=== PATIENT | female | born 1965 ===

== ENCOUNTER 2020-08-23 16:04 | Outpatient (REF) | payer BC, SELFPAY | END 2020-08-23 16:05 | disposition home or self-care (01) | LOC: HO.LNP 16:04 | PROVIDERS: Visit Provider Internal Medicine | DX: Z20.828 Contact with and (suspected) exposure to other viral communicable diseases (principal) | CPT/HCPCS: U0003 ==

== ENCOUNTER 2020-08-26 10:54 | Outpatient (REF) | payer BC, SELFPAY | END 2020-08-26 10:55 | disposition home or self-care (01) | LOC: HO.LAB 10:54 | PROVIDERS: Visit Provider Internal Medicine | DX: Z20.828 Contact with and (suspected) exposure to other viral communicable diseases (principal) | CPT/HCPCS: C9803; U0003 ==

== ENCOUNTER 2020-10-17 16:24 | Outpatient (REF) | payer BC, SELFPAY ==
[2020-10-17 18:19] LABS: Basophils Percent Auto 0.3 % (0-2); Eosinophils Absolute Auto 0.1 X10*3/uL (0.0-0.4); Eosinophils Percent Auto 1.5 % (0-4); Hematocrit 41.9 % (37-47); Hemoglobin 13.5 g/dl (12.0-16.0); Imm Gran Abs Auto 0.03 X10*3/uL (0.00-0.03); Imm Gran Pct Auto 0.4 % (0.0-0.4); Lymphocytes Absolute Auto 1.6 X10*3/uL (1.2-4.9); Lymphocytes Percent Auto 22.9 % (20-40); MANUAL DIFF FLAG NO; Mean Corpuscular HGB Conc 32.2 g/dl (31.0-35.0); Mean Corpuscular Hemoglobin 28.7 pg (27.0-33.0); Mean Corpuscular Volume 89.1 fL (80-98); Mean Platelet Volume 11.3 fL (9.4-12.3); Monocytes Absolute Auto 0.4 X10*3/uL (0.1-1.2); Monocytes Percent Auto 5.4 % (2-11); Neutrophils Absolute Auto 4.7 X10*3/uL (2.0-8.3); Neutrophils Percent Auto 69.5 % (45-73); Platelet Count 264 X10*3/uL (160-400); Red Cell Distribution Width 11.9 % (11.0-16.0); White Blood Count 6.8 X10*3/uL (4.8-10.8)
[2020-10-17 18:47] LABS: Alanine Aminotransferase 34 U/L (0-31); Albumin Level 4.5 g/dL (3.5-5.0); Alkaline Phosphatase 96 U/L (39-117); Anion Gap 13 (12-20); Aspartate Amino Transferase 21 U/L (5-31); Bilirubin Total 0.7 mg/dL (0.0-1.0); Blood Urea Nitrogen 19 mg/dL (9-16); Calcium 9.2 mg/dL (8.4-10.2); Carbon Dioxide 29 mmol/L (22-29); Chloride 106 mmol/L (96-108); Estimated Glomerular Filt Rate 51; Glucose Random 99 mg/dL (60-115); Potassium 4.7 mmol/l (3.3-5.1); Sodium 143 mmol/L (135-145); Total Protein 6.9 g/dL (6.5-8.0)
[2020-10-17 19:09] LABS: Free T4 (Free Thyroxine) 0.97 ng/dL (0.71-1.85); Thyroid Stimulating Hormone 1.94 uIU/mL (0.32-4.0)
[2020-10-18 08:01] LABS: Estimated Average Glucose 126 mg/dL; Hemoglobin A1C 148.7246 umol/L
== END 2020-10-17 16:25 | disposition home or self-care (01) ==
LOC: HO.LABR 16:24
PROVIDERS: PCP Internal Medicine; Visit Provider Internal Medicine
DX: I10 Essential (primary) hypertension (principal); R73.03 Prediabetes; R53.83 Other fatigue
CPT/HCPCS: 36415; 80053; 83036; 84439; 84443; 85025

== ENCOUNTER 2020-10-20 12:19 | Outpatient (REF) | payer BC, SELFPAY ==
--- NOTE | 2020-10-20 | MM_ITS ---
EXAMINATION: MM SCREENING DIGITAL BREAST TOMOSYNTHESIS, BILATERAL CLINICAL INFORMATION: Screening. Asymptomatic. The lifetime risk of breast cancer based on the Tyrer-Cuzick Model is 6.6%. COMPARISON: Mammography: January 20, 2017 and May 21, 2011 TECHNIQUE: Digital breast tomosynthesis is performed in both the craniocaudal and mediolateral oblique views along with computer-aided detection (CAD). Synthesized 2D images are generated from the tomosynthesis. FINDINGS: The breasts are heterogeneously dense, which may obscure small masses (ACR BI-RADS breast composition Category c). There are no significant masses, abnormal calcifications, or other abnormalities. MM/MM tomosynthesis screening BI IMPRESSION: There are no significant changes from prior study. ASSESSMENT: BI-RADS 1: Negative RECOMMENDATION: Routine annual mammography screening. This patient's information was entered into a reminder system with a target due date for their next mammogram.
--- NOTE | 2020-10-20 | MM_ITS ---
EXAMINATION: BONE DENSITOMETRY CLINICAL INDICATION: Asymptomatic menopausal state. COMPARISON: None (current study represents initial baseline exam). TECHNIQUE: Using a [employer] DXA System (software version: 13.1) manufactured by [employer], dual-energy x-ray absorptiometry was performed of the lumbar spine and left hip. The images are of good technical quality. Summary results are attached. FINDINGS: AP SPINE L1-L4: BMD 1.437 g/cm2, Z-score 3.0, T-score 2.1, normal. LEFT FEMUR, NECK: BMD 1.055 g/cm2, Z-score 1.2, T-score 0.1, normal. LEFT FEMUR, TOTAL: BMD 1.186 g/cm2, Z-score 2.1, T-score 1.4, normal. IDENTIFIED RISK FACTORS: Menopause. HISTORY OF FRACTURE: None listed. MEDICATIONS: Vitamin D. MM/XR DEXA axial skeleton IMPRESSION: 1. DIAGNOSIS: Normal bone density based on the lowest T-score value of 0.1 in the femoral neck applying World Health Organization criteria. 2. 10-YEAR FRACTURE RISK PREDICTION, FRAX: Major osteoporotic fracture (clinical spine, forearm, hip or shoulder) 4.9%. Hip fracture 0.1%. 3. Treatment Recommendations: NOF guidelines recommend consideration for treatment in postmenopausal women and men age 50 and older presenting with the following: -A hip or vertebral (clinical or morphometric) fracture. -T-score less than or equal to -2.5 at the femoral neck or spine after appropriate evaluation to exclude secondary causes. -Low bone mass at the hip or spine and a 10-year fracture probability by FRAX of greater than or equal to 3% for hip fracture or greater than or equal to 20% for major osteoporotic fracture based on the [place] adapted WHO algorithm. 4. Other Recommendations: All treatment decisions require clinical judgment and consideration of individual patient factors, including patient preferences, comorbidities, previous drug use, risk factors not captured in the FRAX model (e.g. frailty, falls, vitamin D deficiency, increased bone turnover, interval significant decline in bone density) and possible under or overestimation of fracture risk by FRAX. FUTURE SCAN RECOMMENDATION: People with diagnosed cases of osteoporosis or at high risk for fracture should have regular bone mineral density tests. For patients eligible for Medicare, routine testing is allowed once every 2 years. The testing frequency can be increased to one year for patients who have rapidly progressing disease, those who are receiving or discontinuing medical therapy to restore bone mass, or have additional risk factors.
== END 2020-10-20 12:20 | disposition home or self-care (01) ==
LOC: HO.MAMMO 12:19
PROVIDERS: PCP Internal Medicine; Visit Provider Internal Medicine
DX: Z12.31 Encounter for screening mammogram for malignant neoplasm of breast (principal); Z78.0 Asymptomatic menopausal state; Z13.820 Encounter for screening for osteoporosis
CPT/HCPCS: 77063; 77067; 77080

== ENCOUNTER 2020-11-30 15:07 | Outpatient (REF) | payer BC, SELFPAY ==
[2020-11-30 15:44] LABS: Estimated Average Glucose 126 mg/dL
[2020-11-30 16:03] LABS: Alanine Aminotransferase 33 U/L (0-31); Albumin Level 4.9 g/dL (3.5-5.0); Alkaline Phosphatase 96 U/L (39-117); Anion Gap 15 (12-20); Aspartate Amino Transferase 28 U/L (5-31); Bilirubin Total 1.4 mg/dL (0.0-1.0); Blood Urea Nitrogen 17 mg/dL (9-16); Calcium 9.9 mg/dL (8.4-10.2); Carbon Dioxide 26 mmol/L (22-29); Chloride 103 mmol/L (96-108); Estimated Glomerular Filt Rate > 60; Glucose Random 114 mg/dL (60-115); Sodium 139 mmol/L (135-145); Total Protein 7.4 g/dL (6.5-8.0)
== END 2020-11-30 15:08 | disposition home or self-care (01) ==
LOC: HO.LAB 15:07
PROVIDERS: PCP Internal Medicine; Visit Provider Internal Medicine
DX: I12.9 Hypertensive chronic kidney disease with stage 1 through stage 4 chronic kidney disease, or unspecified chronic kidney disease (principal); N18.9 Chronic kidney disease, unspecified; R73.03 Prediabetes
CPT/HCPCS: 36415; 80053; 83036

== ENCOUNTER 2021-01-11 11:48 | Outpatient (REF) | payer BC, SELFPAY ==
[2021-01-11 13:25] LABS: MANUAL DIFF FLAG NO
[2021-01-11 13:29] LABS: Basophils Percent Auto 0.3 % (0-2); Eosinophils Absolute Auto 1.3 X10*3/uL (0.0-0.4); Eosinophils Percent Auto 17.6 % (0-4); Hematocrit 45.6 % (37-47); Hemoglobin 14.7 g/dl (12.0-16.0); Imm Gran Abs Auto 0.04 X10*3/uL (0.00-0.03); Imm Gran Pct Auto 0.5 % (0.0-0.4); Lymphocytes Absolute Auto 1.6 X10*3/uL (1.2-4.9); Lymphocytes Percent Auto 21.7 % (20-40); Mean Corpuscular HGB Conc 32.2 g/dl (31.0-35.0); Mean Corpuscular Hemoglobin 28.3 pg (27.0-33.0); Mean Corpuscular Volume 87.9 fL (80-98); Mean Platelet Volume 11.3 fL (9.4-12.3); Monocytes Absolute Auto 0.4 X10*3/uL (0.1-1.2); Neutrophils Percent Auto 53.9 % (45-73); Platelet Count 262 X10*3/uL (160-400); Red Blood Count 5.19 X10*6/uL (4.20-5.50); Red Cell Distribution Width 12.5 % (11.0-16.0); White Blood Count 7.4 X10*3/uL (4.8-10.8)
[2021-01-11 13:48] LABS: Glucose Urine UA NEG (NEG); Leukocyte Esterase Urine NEG (NEG); Nitrite Urine NEG (NEG); PH 5.5 (5.0-8.0); Urine Blood NEG (NEG); Urine Ketones 5 MG/DL (NEG); Urine Protein NEG (NEG-TRACE)
[2021-01-11 13:50] LABS: Appearance Urine CLEAR; Color Urine YELLOW
[2021-01-11 14:01] LABS: Alanine Aminotransferase 20 U/L (0-31); Albumin Level 4.3 g/dL (3.5-5.0); Alkaline Phosphatase 96 U/L (39-117); Anion Gap 14 (12-20); Aspartate Amino Transferase 17 U/L (5-31); Bilirubin Total 1.1 mg/dL (0.0-1.0); Blood Urea Nitrogen 15 mg/dL (9-16); C Reactive Protein 0.25 mg/dL (< or = 0.50); Calcium 9.4 mg/dL (8.4-10.2); Carbon Dioxide 26 mmol/L (22-29); Chloride 103 mmol/L (96-108); Estimated Glomerular Filt Rate > 60; Glucose Random 98 mg/dL (60-115); Lipase 48 U/L (8-78); Potassium 4.9 mmol/L (3.3-5.1); Sodium 138 mmol/L (135-145); Total Protein 6.7 g/dL (6.5-8.0)
== END 2021-01-11 11:49 | disposition home or self-care (01) ==
LOC: HO.10HDL 11:48
PROVIDERS: PCP Internal Medicine; Visit Provider Internal Medicine
DX: R10.9 Unspecified abdominal pain (principal); R30.0 Dysuria
CPT/HCPCS: 36415; 80053; 81003; 83690; 85025; 86140; 87086

== ENCOUNTER 2021-01-15 11:52 | Outpatient (REF) | payer BC, SELFPAY ==
[2021-01-15 13:16] LABS: MANUAL DIFF FLAG NO
[2021-01-15 13:19] LABS: Basophils Percent Auto 0.5 % (0-2); Eosinophils Absolute Auto 1.4 X10*3/uL (0.0-0.4); Eosinophils Percent Auto 22.1 % (0-4); Hematocrit 42.8 % (37-47); Hemoglobin 13.9 g/dl (12.0-16.0); Imm Gran Abs Auto 0.03 X10*3/uL (0.00-0.03); Imm Gran Pct Auto 0.5 % (0.0-0.4); Lymphocytes Absolute Auto 1.8 X10*3/uL (1.2-4.9); Lymphocytes Percent Auto 28.1 % (20-40); Mean Corpuscular HGB Conc 32.5 g/dl (31.0-35.0); Mean Corpuscular Hemoglobin 28.5 pg (27.0-33.0); Mean Corpuscular Volume 87.9 fL (80-98); Mean Platelet Volume 11.2 fL (9.4-12.3); Monocytes Absolute Auto 0.4 X10*3/uL (0.1-1.2); Neutrophils Absolute Auto 2.8 X10*3/uL (2.0-8.3); Neutrophils Percent Auto 42.8 % (45-73); Platelet Count 238 X10*3/uL (160-400); Red Blood Count 4.87 X10*6/uL (4.20-5.50); Red Cell Distribution Width 12.7 % (11.0-16.0); White Blood Count 6.5 X10*3/uL (4.8-10.8)
[2021-01-15 13:47] LABS: Alanine Aminotransferase 25 U/L (0-31); Alkaline Phosphatase 86 U/L (39-117); Anion Gap 13 (12-20); Aspartate Amino Transferase 19 U/L (5-31); Bilirubin Total 1.3 mg/dL (0.0-1.0); Blood Urea Nitrogen 15 mg/dL (9-16); C Reactive Protein 0.36 mg/dL (< or = 0.50); Calcium 9.1 mg/dL (8.4-10.2); Carbon Dioxide 25 mmol/L (22-29); Chloride 103 mmol/L (96-108); Estimated Glomerular Filt Rate > 60; Glucose Random 117 mg/dL (60-115); Potassium 4.8 mmol/L (3.3-5.1); Sodium 136 mmol/L (135-145); Total Protein 6.1 g/dL (6.5-8.0)
== END 2021-01-15 11:53 | disposition home or self-care (01) ==
LOC: HO.10HDL 11:52
PROVIDERS: Visit Provider Internal Medicine
DX: I10 Essential (primary) hypertension (principal); M54.2 Cervicalgia
CPT/HCPCS: 36415; 80053; 82550; 85025; 86140

== ENCOUNTER 2021-08-08 12:00 | Outpatient (REF) | payer BC, SELFPAY ==
[2021-08-08 13:14] LABS: Vitamin D 25-OH Total 130.7 ng/mL (>30)
== END 2021-08-08 12:01 | disposition home or self-care (01) ==
LOC: HO.LAB 12:00
PROVIDERS: PCP Internal Medicine; Visit Provider Internal Medicine
DX: E55.9 Vitamin D deficiency, unspecified (principal)
CPT/HCPCS: 36415; 82306

== ENCOUNTER 2021-09-19 08:58 | Outpatient (REF) | payer BC, SELFPAY | END 2021-09-19 08:59 | disposition home or self-care (01) | LOC: HO.HMGCLDS 08:58 | PROVIDERS: Visit Provider Internal Medicine | DX: Z20.822 Contact with and (suspected) exposure to COVID-19 (principal) | CPT/HCPCS: C9803; U0003; U0005 ==

== ENCOUNTER 2022-08-27 08:55 | Outpatient (REF) | payer BC, SELFPAY ==
[2022-08-27 11:29] LABS: MANUAL DIFF FLAG NO
[2022-08-27 11:33] LABS: Appearance Urine Clear; Color Urine Yellow; Glucose Urine UA Negative (Negative); Leukocyte Esterase Urine Negative (Negative); Nitrite Urine Negative (Negative); PH 7.5 (5.0-9.0); Urine Blood Negative (Negative); Urine Ketones Negative (Negative); Urine Protein Negative (Neg-Trace)
[2022-08-27 11:40] LABS: Eosinophils Absolute Auto 0.2 X10*3/uL (0.0-0.4); Eosinophils Percent Auto 3.7 % (0-4); Hematocrit 43.2 % (37.0-47.0); Hemoglobin 14.1 g/dl (12.0-16.0); Imm Gran Abs Auto 0.01 X10*3/uL (0.00-0.03); Imm Gran Pct Auto 0.2 % (0.0-0.4); Lymphocytes Absolute Auto 1.4 X10*3/uL (1.2-4.9); Lymphocytes Percent Auto 33.3 % (20-40); Mean Corpuscular HGB Conc 32.6 g/dl (31.0-35.0); Mean Corpuscular Hemoglobin 28.8 pg (27.0-33.0); Mean Corpuscular Volume 88.2 fL (80.0-98.0); Mean Platelet Volume 11.3 fL (9.4-12.3); Monocytes Absolute Auto 0.3 X10*3/uL (0.1-1.2); Monocytes Percent Auto 7.9 % (2-11); Neutrophils Absolute Auto 2.2 x10*3/uL (2.0-8.3); Neutrophils Percent Auto 53.9 % (45-73); Platelet Count 240 X10*3/uL (160-400); Red Cell Distribution Width 12.4 % (11.0-16.0); White Blood Count 4.1 X10*3/uL (4.8-10.8)
[2022-08-27 13:52] LABS: Alanine Aminotransferase 25 U/L (0-31); Albumin Level 4.5 g/dL (3.5-5.0); Alkaline Phosphatase 89 U/L (39-117); Anion Gap 11 (12-20); Aspartate Amino Transferase 17 U/L (5-31); Bilirubin Total 1.1 mg/dL (0.0-1.0); Blood Urea Nitrogen 17 mg/dL (9-16); Calcium 9.4 mg/dL (8.4-10.2); Carbon Dioxide 29 mmol/L (22-29); Chloride 106 mmol/L (96-108); Cholesterol 232 mg/dL; Estimated Glomerular Filt Rate > 60; Glucose Fasting 140 mg/dL (60-99); HDL Cholesterol 58 mg/dL; LDL Cholesterol Calculated 153 mg/dl; Sodium 141 mmol/L (135-145); TSH reflex Free T4 1.99 uIU/mL (0.32-4.0); Total Protein 6.9 g/dL (6.5-8.0); Triglycerides 107 mg/dL; Vitamin D 25-OH Total 32.9 ng/mL (>30)
== END 2022-08-27 08:56 | disposition home or self-care (01) ==
LOC: HO.HMGCLDS 08:55
PROVIDERS: PCP Nurse Practitioner Family; Visit Provider Nurse Practitioner Family
DX: Z00.00 Encounter for general adult medical examination without abnormal findings (principal); Z78.0 Asymptomatic menopausal state
CPT/HCPCS: 36415; 80053; 80061; 81003; 82306; 84443; 85025

== ENCOUNTER 2022-09-06 14:46 | Outpatient (REF) | payer BC, SELFPAY ==
--- NOTE | ~2022-09-06 | MM_ITS ---
EXAMINATION: MM SCREENING DIGITAL BREAST TOMOSYNTHESIS, BILATERAL CLINICAL INFORMATION: Screening. Asymptomatic. The lifetime risk of breast cancer based on the Tyrer-Cuzick Model is 6%. COMPARISON: Mammography: 10/20/2020, 02/08/2017 TECHNIQUE: Digital breast tomosynthesis is performed in both the craniocaudal and mediolateral oblique views along with computer-aided detection (CAD). Synthesized 2D images are generated from the tomosynthesis. FINDINGS: The breasts are heterogeneously dense, which may obscure small masses (ACR BI-RADS breast composition Category c). Breast tissue composition borders on average fibroglandular. Parenchymal pattern is similar to prior studies. There are no significant masses, abnormal calcifications, or other abnormalities. No significant changes. MM/MM tomosynthesis screening BI IMPRESSION: No mammographic evidence of malignancy. ASSESSMENT: BI-RADS 1: Negative RECOMMENDATION: Routine annual mammography screening. This patient's information was entered into a reminder system with a target due date for their next mammogram.
== END 2022-09-06 14:47 | disposition home or self-care (01) ==
LOC: HO.MAMMO 14:46
PROVIDERS: PCP Nurse Practitioner Family; Visit Provider Nurse Practitioner Family
DX: Z12.31 Encounter for screening mammogram for malignant neoplasm of breast (principal)
CPT/HCPCS: 77063; 77067

== ENCOUNTER 2022-11-27 07:22 | Outpatient (REF) | payer BC, SELFPAY ==
[2022-11-27 11:47] LABS: Alanine Aminotransferase 29 U/L (0-31); Albumin Level 4.4 g/dL (3.5-5.0); Alkaline Phosphatase 82 U/L (39-117); Anion Gap 12 (12-20); Aspartate Amino Transferase 20 U/L (5-31); Bilirubin Total 1.2 mg/dL (0.0-1.0); Blood Urea Nitrogen 20 mg/dL (9-16); Calcium 9.1 mg/dL (8.4-10.2); Carbon Dioxide 25 mmol/L (22-29); Chloride 108 mmol/L (96-108); Cholesterol 232 mg/dL; Estimated Glomerular Filt Rate > 60; Glucose Fasting 143 mg/dL (60-99); HDL Cholesterol 54 mg/dL; LDL Cholesterol Calculated 146 mg/dl; Potassium 4.4 mmol/L (3.3-5.1); Sodium 141 mmol/L (135-145); Total Protein 6.5 g/dL (6.5-8.0); Triglycerides 161 mg/dL
== END 2022-11-27 07:23 | disposition home or self-care (01) ==
LOC: HO.HMGCLDS 07:22
PROVIDERS: PCP Nurse Practitioner Family; Visit Provider Nurse Practitioner Family
DX: E78.5 Hyperlipidemia, unspecified (principal)
CPT/HCPCS: 36415; 80053; 80061

== ENCOUNTER 2023-02-06 13:36 | Outpatient (REF) | payer BC, SELFPAY ==
[2023-02-13 09:23] LABS: HPV mRNA E6/E7 rflx Not Detected (Not Detected)
== END 2023-02-06 13:37 | disposition home or self-care (01) ==
LOC: HO.LNP 13:36
PROVIDERS: PCP Nurse Practitioner Family; Visit Provider Advanced Practice Midwife
DX: Z01.419 Encounter for gynecological examination (general) (routine) without abnormal findings (principal); N89.8 Other specified noninflammatory disorders of vagina; R32 Unspecified urinary incontinence; N95.1 Menopausal and female climacteric states
CPT/HCPCS: 87624; 88142

== ENCOUNTER → 2023-03-06 15:14 | Outpatient (BNVA) | payer BC, SELFPAY | PROVIDERS: PCP Nurse Practitioner Family; Visit Provider Nurse Practitioner Family | DX: N39.3 Stress incontinence (female) (male) (principal); R35.0 Frequency of micturition; E78.5 Hyperlipidemia, unspecified; Z79.899 Other long term (current) drug therapy | CPT/HCPCS: 51798 ==

== ENCOUNTER 2023-08-19 07:36 | Outpatient (AMB) | payer BC, SELFPAY ==
--- NOTE | 2023-08-19 07:41 | MHC.PC.OV ---
Vital Signs 08/19/23 07:43 Height 5 ft Weight 152 lb BMI 29.7 BP 112/76 Blood Pressure Location Rt brachial Position Sitting Pulse 71 Pulse Source Pulse Oximeter Pulse Oximetry (%) 98 Oxygen Delivery Method Room Air Intake Visit Reasons: Annual PE Intake Note: Patient here for physical exam, pt would like to talk about medications. Allergies No Known Allergies Allergy (Verified 08/19/23 07:46) Medication List - Last Reconciled 08/19/23 by BHASKAR Benites atorvastatin 10 mg PO BEDTIME blood sugar diagnostic ([employer] Ultra Test strips) Use to check blood sugar twice daily: fasting and random, and for s/s hypo/hyperglycemia blood-glucose meter ([employer] Ultra2 Meter) Use to check blood sugar twice daily: fasting and random, and for s/s hypo/hyperglycemia carvedilol 3.125 mg PO ONCE lancets ([employer] Delica Lancets) Use to check blood sugar twice daily: fasting and random, and for s/s hypo/hyperglycemia lisinopril 10 mg PO DAILY Tobacco use date assessed: 08/19/23 Dental Screening Dental Screen Date: 08/19/23 Did you have a dental visit in the last 12 months?: Yes Did you have a dental problem in the last 6 months where you did not have access to dental care?: No Was dental information given to patient?: Patient has dentist HPI Annual PE HPI Details Pt is here for a PE. Will order labs. 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 Due for mammo in the near future, will order. Pt had a previous colonoscopy at [place], missing notes, will try to track these down. Pt is a diabetic, on an SOMMER and a statin. Due for A1C and microalbumin, will order. Denies polyuria, polydipsia, and neuropathy. Pt denies any signs and symptoms of hypoglycemia and does know how to correct it. Pt does not check her blood sugar often because she has trouble pricking her finger (needle phobia). Will send sensor. refuses pneumo vaccines/flu vaccine. [facility] Medical History (Updated 08/19/23 @ 07:54 by BHASKAR Benites) Menopausal vaginal dryness Leaking of urine Frequency of urination High cholesterol Diabetes Surgical History Hx of section Family History Sister Diabetes 1.5, managed as type 1 Mother Hypertension Housing: House Alcohol intake: current Alcohol intake frequency: a few times a week Patient Tobacco Use Status: Never used Tobacco e-Cigarette/Vaping Use: Never Used Current occupational status: unemployed Sexual orientation: Straight/Heterosexual Gender identity: Female Cognitive needs: No Hearing needs: No Vision needs: No Questionnaire PHQ-9 Over the last 2 weeks, how often have you been bothered by any of the following problems? 99267 - PHQ-9 Billing: Patient declined-do not bill Source: Developed by Drs. Anil Carlson, Sylvia Batres, Maximiliano Aden and colleagues, with an educational ar from [employer]. Thrive Questionnaire Date Thrive assessed: 08/19/23 I am a: Patient What is your living situation today?: I have a steady place to live Within the past 12 months, did the food you bought not last and you didn't have the money to get more?: Never true Within the past 12 months, did you worry whether your food would run out before you got money to buy more?: Never true Do you have trouble paying for medicines?: No Do you have trouble getting transportation to medical appointments?: No Do you have trouble paying your heating and electricity bill?: No Do you have trouble taking care of your child, family member or friend?: No Do you have trouble with day-to-day activities such as bathing, preparing meals, shopping, managing finances, etc.?: No Are you currently unemployed and looking for a job?: No Are you interested in more education?: No JENNIFER-7 AMB Questionnaire JENNIFER-7 Date JENNIFER - 7 assessed: 08/19/23 Feeling nervous, anxious, or on edge: 1 = Several days Not being able to stop or control worryin = Several days Worrying too much about different things: 2 = More than half the days Trouble relaxin = Several days Being so restless that it is hard to sit still: 0 = Not at all Becoming easily annoyed or irritable: 2 = More than half the days Feeling afraid as if something awful might happen: 1 = Several days Total JENNIFER-7 score (0-4 normal; 5-9 mild; 10-14 moderate; 15-21 severe): 8 Source: Developed by Drs. Anil Carlson, Sylvia Batres, Maximiliano Aden and colleagues, with an educational ar from [employer]. JENNIFER-7 Assessment Billing JENNIFER-7 Assessment Tool: JENNIFER-7 Assessment 85245 Review of Systems Const Denies chills and Denies fever(s) Eyes Denies blurry vision ENT Denies vertigo, Denies dizziness and Denies sore throat Card Denies chest pain at rest, Denies chest pain with activity, Denies diaphoresis, Denies dyspnea and Denies dyspnea on exertion Resp Denies cough, Denies dyspnea, Denies dyspnea on exertion and Denies wheezing GI Denies abdominal pain, Denies melena, Denies hematochezia, Denies constipation, Denies diarrhea and Denies loose stools Denies hematuria Musc Denies numbness and Denies tingling Skin/Breast Denies lesions Neuro Denies vertigo, Denies dizziness, Denies numbness and Denies tingling Psych Denies anxiety, Denies depression, Denies homicidal ideation, Denies suicidal ideation and Denies other (substance abuse) Aller/Immun Denies wheezing Physical exam (Primary Care) Vital Signs: Last Vital Signs Pulse 71 08/19/23 07:43 BP 112/76 08/19/23 07:43 Pulse Ox 98 08/19/23 07:43 Oxygen Delivery Method Room Air 08/19/23 07:43 BMI result Body Mass Index 29.7 Tobacco/Smoking Status: Tobacco use Status Tobacco use date assessed 08/19/23 08/19/23 07:52 Patient Tobacco Use Status Never used Tobacco 08/19/23 07:42 e-Cigarette/Vaping Use Never Used 08/19/23 07:42 Thrive Assessment: Date of Thrive Assessment Date Thrive assessed 08/19/23 08/19/23 08:43 Const General: cooperative Nutritional Appearance: well nourished Orientation/consciousness: patient oriented x3 HENMT Head: Yes normal to inspection, Yes normocephalic and Yes atraumatic Ears: TM's normal bilaterally Eyes General: appearance normal, both eyes and all related structures Alignment and Position: alignment normal and position normal Neck Neck: Yes normal visual inspection and Yes no lymphadenopathy Thyroid: Thyroid normal Resp Effort & Inspection: normal respiratory effort Auscultation: clear to auscultation bilaterally Cardio Rate: regular rate Rhythm: regular rhythm Heart sounds: S1 normal heart sound present, S2 normal heart sound present and no murmurs GI Palpation (GI): Soft to palpation and nontender Auscultation: normal bowel sounds Skin Rashes: no rashes Neuro General: patient oriented x3, moves all extremities, no focal motor deficits and deep tendon reflexes 2+ bilaterally Romberg Test: Negative Extrem Other: bilat feet: + sensation with use of monofilament, feet intact Psych Appearance: grossly normal Mental Status: mental status grossly normal Speech and movement: Normal speech and movement present Affect: normal affect Attitude: cooperative Thought process: Normal thought process present Thought content: Normal thought content present Insight: Good insight present (Psych) Judgement: Good judgement present (Psych) Assessment and Plan Assessment & Plan (1) Diabetes: Code(s): E11.9 - Type 2 diabetes mellitus without complications Plan: Labs ordered (2) Physical exam: Code(s): Z00.00 - Encounter for general adult medical examination without abnormal findings Plan: Labs ordered Plan The patient agreed to the use of a medical secretary teacher for this encounter. Scribed for BHASKAR Griffin by Lalitha Salinas medical secretary teacher, on 08/19/2023 at 08:00 EST. Orders: Orders Complete Blood Count Auto Diff Today E11.9 - Type 2 diabetes mellitus without complications UA CC w/rflx Micro + Cult Today E11.9 - Type 2 diabetes mellitus without complications Microalbumin, Random (w Creat) Today E11.9 - Type 2 diabetes mellitus without complications Hemoglobin A1c Today E11.9 - Type 2 diabetes mellitus without complications MM screening mammo BI Today Z12.31 - Encounter for screening mammogram for malignant neoplasm of breast Comprehensive Paia. Panel Fast Today E11.9 - Type 2 diabetes mellitus without complications TSH reflex Free T4 Today E11.9 - Type 2 diabetes mellitus without complications Lipid Panel Today E11.9 - Type 2 diabetes mellitus without complications AMB EKG-In Office Today Z00.00 - Encounter for general adult medical examination without abnormal findings Medications: Changed From carvedilol 3.125 mg PO BID 180 tabs 1RF To carvedilol 3.125 mg PO ONCE Refilled atorvastatin 10 mg PO BEDTIME 90 tabs 3RF Coding Level of Care Code Est Pt Prev Care 40-64y(79606) Diagnoses Diabetes E11.9 Physical exam Z00.00 Additional Codes JENNIFER-7 Assessment Billing - JENNIFER-7 Assessment Tool: JENNIFER-7 Assessment 87275 ([id number])
[2023-08-19 07:43] VITALS: BP 112/76; PULSE 71; O2SAT 98; BMI 29.7
== END 2023-08-19 08:44 | disposition home or self-care (01) ==
PROVIDERS: Visit Provider Nurse Practitioner Family
DX: E11.9 Type 2 diabetes mellitus without complications (principal); Z00.00 Encounter for general adult medical examination without abnormal findings
CPT/HCPCS: 99396

== ENCOUNTER 2023-08-23 09:14 | Outpatient (REF) | payer BC, SELFPAY ==
[2023-08-23 11:11] LABS: MANUAL DIFF FLAG NO
[2023-08-23 11:17] LABS: Basophils Percent Auto 0.7 % (0-2); Eosinophils Absolute Auto 0.2 X10*3/uL (0.0-0.4); Eosinophils Percent Auto 3.4 % (0-4); Hematocrit 43.7 % (37.0-47.0); Hemoglobin 13.9 g/dl (12.0-16.0); Imm Gran Abs Auto 0.03 X10*3/uL (0.00-0.03); Imm Gran Pct Auto 0.7 % (0.0-0.4); Lymphocytes Absolute Auto 1.6 X10*3/uL (1.2-4.9); Lymphocytes Percent Auto 35.4 % (20-40); Mean Corpuscular HGB Conc 31.8 g/dl (31.0-35.0); Mean Corpuscular Hemoglobin 28.1 pg (27.0-33.0); Mean Corpuscular Volume 88.5 fL (80.0-98.0); Mean Platelet Volume 11.6 fL (9.4-12.3); Monocytes Absolute Auto 0.4 X10*3/uL (0.1-1.2); Monocytes Percent Auto 7.8 % (2-11); Neutrophils Absolute Auto 2.3 x10*3/uL (2.0-8.3); Platelet Count 243 X10*3/uL (160-400); Red Blood Count 4.94 X10*6/uL (4.20-5.50); Red Cell Distribution Width 12.7 % (11.0-16.0); White Blood Count 4.5 X10*3/uL (4.8-10.8)
[2023-08-23 11:20] LABS: Appearance Urine Clear; Color Urine Yellow; Glucose Urine UA Negative (Negative); Leukocyte Esterase Urine Negative (Negative); Nitrite Urine Negative (Negative); Specific Gravity - Urine <= 1.005 (1.005-1.025); Urine Blood Negative (Negative); Urine Ketones Negative (Negative); Urine Protein Negative (Neg-Trace)
[2023-08-23 11:29] LABS: Estimated Average Glucose 140 mg/dL; Hemoglobin A1c % 6.5 % (<6.0)
[2023-08-23 11:40] LABS: Alanine Aminotransferase 44 U/L (0-31); Albumin Level 4.3 g/dL (3.5-5.0); Alkaline Phosphatase 80 U/L (39-117); Anion Gap 13 (12-20); Aspartate Amino Transferase 24 U/L (5-31); Bilirubin Total 0.7 mg/dL (0.0-1.0); Blood Urea Nitrogen 17 mg/dL (9-16); Calcium 9.4 mg/dL (8.4-10.2); Carbon Dioxide 25 mmol/L (22-29); Chloride 107 mmol/L (96-108); Cholesterol 192 mg/dL (<200); Estimated Glomerular Filt Rate > 60; Glucose Fasting 156 mg/dL (60-99); HDL Cholesterol 51 mg/dL (>40); LDL Cholesterol Calculated 119 mg/dL (<100); Sodium 140 mmol/L (135-145); Triglycerides 112 mg/dL (<150)
[2023-08-23 11:46] LABS: Creatinine Urine 47.18 mg/dL; Microalbum/Creatinine Ratio Ur 61.4 ug/mg cr (<30)
[2023-08-23 11:56] LABS: TSH reflex Free T4 2.28 uIU/mL (0.32-4.0)
== END 2023-08-23 09:15 | disposition home or self-care (01) ==
LOC: HO.HMGCLDS 09:14
PROVIDERS: PCP Nurse Practitioner Family; Visit Provider Nurse Practitioner Family
DX: E11.9 Type 2 diabetes mellitus without complications (principal)
CPT/HCPCS: 36415; 80053; 80061; 81003; 82043; 82570; 83036; 84443; 85025

== ENCOUNTER 2023-09-09 08:19 | Outpatient (REF) | payer BC, SELFPAY ==
--- NOTE | ~2023-09-09 | US_ITS ---
EXAMINATION: US ABDOMEN COMPLETE CLINICAL INFORMATION: Abnormal levels of other serum enzymes. COMPARISON: None available. TECHNIQUE: Real-time imaging of the abdominal viscera. Limited visualization due to bowel gas. FINDINGS: PANCREAS: Limited visualization. ABDOMINAL AORTA: Nonaneurysmal. INFERIOR VENA CAVA: Visualized portions are normal. LIVER: Increased hepatic parenchymal heterogeneity and echogenicity which could be associated with hepatocellular disease/hepatic steatosis and severely limits visualization. GALLBLADDER: Gallbladder wall thickness of 0.27 cm. No gallstones appreciated. COMMON BILE DUCT: Caliber measuring 0.63 cm in diameter. RIGHT KIDNEY: No hydronephrosis. No renal calculi. Limited visualization. The kidney measures 12.8 cm in maximum dimension. LEFT KIDNEY: Left kidney not visualized, although visualization is limited due to bowel gas. Radiologist not in attendance. Images later provided for interpretation. Per correctional case manager statement, patient denies history of prior nephrectomy. SPLEEN: Normal. The spleen measures 10.5 cm in maximum dimension. FREE FLUID: None. US/US abdomen complete IMPRESSION: 1. Increased hepatic parenchymal heterogeneity and echogenicity which could be associated with hepatocellular disease/hepatic steatosis and severely limits visualization. 2. Left kidney not visualized, although visualization is limited due to bowel gas. Radiologist not in attendance. Per correctional case manager statement, patient denies history of prior nephrectomy. Differential considerations include renal agenesis, atypical/atrophic kidney and/or ectopic kidney. CT scan of the abdomen and pelvis recommended for further evaluation.
== END 2023-09-09 08:20 | disposition home or self-care (01) ==
LOC: HO.HMGCX 08:19
PROVIDERS: PCP Nurse Practitioner Family; Visit Provider Nurse Practitioner Family
DX: R74.8 Abnormal levels of other serum enzymes (principal)
CPT/HCPCS: 76700

== ENCOUNTER 2023-10-28 16:27 | Outpatient (REF) | payer BC, SELFPAY ==
--- NOTE | ~2023-10-28 | CT_ITS ---
EXAMINATION: CT ABDOMEN AND PELVIS WITHOUT CONTRAST CLINICAL INFORMATION: Question left renal atrophy. COMPARISON: Abdominal ultrasound 09/09/2023 TECHNIQUE: Multidetector volumetric imaging was performed from the superior aspect of the liver through the pubic symphysis. Sagittal and coronal reformatted images were obtained on the technologist's workstation. This CT examination was performed using dose optimization techniques as appropriate, variously including the following: *Automated exposure control *Adjustment of mA and/or kV according to patient size (this includes techniques or standardized protocols for targeted exams where dose is matched to indication/reason for exam; i.e. extremities or head) *Use of iterative reconstruction technique DLP: 583 mGy-cm FINDINGS: Visualized lung bases are well aerated. The liver is normal in size but demonstrates diffusely decreased attenuation. Small calcified granuloma noted within the anterior right hepatic lobe. The gallbladder is normal in appearance. The pancreas, spleen and adrenal glands are unremarkable. The right kidney measures 12 cm in maximum dimension. No renal calculi or hydronephrosis of the right kidney. A left kidney is not identified. The stomach is decompressed. Normal caliber loops of small and large bowel. Mild colonic stool burden. Mild to moderate colonic diverticulosis without CT evidence to suggest active diverticulitis. Normal appendix. Normal caliber abdominal aorta demonstrating mild atherosclerotic disease. 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 No retroperitoneal lymphadenopathy. The bladder is normal in appearance. Unremarkable CT appearance of the uterus. No gross free pelvic fluid. No inguinal lymphadenopathy. Mild diffuse degenerative changes of the spine. CT/CT abdomen pelvis wo IV con IMPRESSION: 1. A left kidney is not identified. 2. The right kidney measures 12 cm in maximum dimension. No renal calculi or hydronephrosis of the right kidney. 3. Diffusely decreased liver attenuation suggesting hepatic steatosis. Correlation with liver enzymes recommended. 4. Mild to moderate colonic diverticulosis without CT evidence to suggest active diverticulitis. 5. 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 Fleischner guidelines were followed.
== END 2023-10-28 16:28 | disposition home or self-care (01) ==
LOC: HO.CT 16:27
PROVIDERS: PCP Nurse Practitioner Family; Visit Provider Nurse Practitioner Family
DX: R93.422 Abnormal radiologic findings on diagnostic imaging of left kidney (principal)
CPT/HCPCS: 74176

== ENCOUNTER 2023-11-24 07:24 | Outpatient (REF) | payer BC, SELFPAY | END 2023-11-24 07:25 | disposition home or self-care (01) | LOC: HO.MAMMO 07:24 | PROVIDERS: PCP Nurse Practitioner Family; Visit Provider Nurse Practitioner Family | DX: Z12.31 Encounter for screening mammogram for malignant neoplasm of breast (principal) | CPT/HCPCS: 77063; 77067 ==

== ENCOUNTER → 2023-11-24 07:30 | Outpatient (BNV) | payer BC, SELFPAY | PROVIDERS: PCP Nurse Practitioner Family; Visit Provider Radiology Diagnostic Radiology | DX: Z12.31 Encounter for screening mammogram for malignant neoplasm of breast (principal) | CPT/HCPCS: 77063; 77067 ==

== ENCOUNTER 2024-01-15 08:11 | Outpatient (AMB) | payer BC, SELFPAY ==
[2024-01-15 08:49] VITALS: BP 112/72; PULSE 63; TEMP 36.4; O2SAT 98; BMI 29.5
--- NOTE | 2024-01-15 08:49 | AM.OFFWIN_ITS ---
Intake Vital Signs 01/15/24 08:49 Height 5 ft Weight 151 lb BMI 29.5 BP 112/72 Blood Pressure Location Lt brachial Position Sitting Pulse 63 Pulse Source Pulse Oximeter Temp 97.5 F Temp Source Temporal Artery Scan Pulse Oximetry (%) 98 Oxygen Delivery Method Room Air Intake Visit Reasons: EP lft side chest pain better but still concerned Intake Note: pt is here today for lft side chest pain started yesterday Patient Tobacco Use Status: Never used Tobacco Allergies No Known Allergies Allergy (Verified 01/15/24 08:53) Do you need a note to return to daycare/school/sports/work: Yes HPI HPI Comments History of Present Illness Details 58 y/o female patient with c/o chest tig htness and pain with moving air in/out since last night. Reports pain gone now, but still concerned. [facility] Medical History (Updated 11/10/23 @ 11:49 by SÁNCHEZ Benties-WENDY) Fatty liver Menopausal vaginal dryness Leaking of urine Frequency of urination High cholesterol Diabetes Surgical History Hx of section Family History Sister Diabetes 1.5, managed as type 1 Mother Hypertension Social History Housing: House Alcohol intake: current Alcohol intake frequency: a few times a week Patient Tobacco Use Status: Never used Tobacco e-Cigarette/Vaping Use: Never Used Current occupational status: unemployed Sexual orientation: Straight/Heterosexual Gender identity: Female Cognitive needs: No Hearing needs: No Vision needs: No Review of Systems Const All systems reviewed & are unremarkable except as noted in HPI and below Physical Exam Vital Signs: Last Vital Signs Temp 97.5 F 01/15/24 08:49 Pulse 63 01/15/24 08:49 BP 112/72 01/15/24 08:49 Pulse Ox 98 01/15/24 08:49 Oxygen Delivery Method Room Air 01/15/24 08:49 BMI result Body Mass Index 29.5 Const General: comfortable and no acute distress Orientation/consciousness: patient oriented x3 HEENT Head: Yes normocephalic Ears: external ears normal Resp Effort & Inspection: normal respiratory effort, able to speak in complete sentences, no audible wheezes and no cough Auscultation: no crackles, no rales, no rhonchi and wheezes lower bilaterally Cardio Rate: regular rate Rhythm: regular rhythm Neuro General: patient oriented x3 Assessment & Plan Assessment & Plan (1) Wheezing on auscultation: Code(s): R06.2 - Wheezing Plan: - Chest Xray - RTC if worse Orders: Orders XR chest 2V Today R06.2 - Wheezing Coding Level of Care Code Est Pt Level 3 (10904) Diagnoses Wheezing on auscultation R06.2 Time Spent (min) 15
== END 2024-01-15 11:21 | disposition home or self-care (01) ==
PROVIDERS: PCP Nurse Practitioner Family; Visit Provider Nurse Practitioner Family
DX: R06.2 Wheezing (principal)
CPT/HCPCS: 99213

== ENCOUNTER 2024-01-15 09:13 | Outpatient (REF) | payer BC, SELFPAY ==
--- NOTE | ~2024-01-15 | XR_ITS ---
EXAMINATION: XR CHEST CLINICAL INFORMATION: Wheezing COMPARISON: None available. TECHNIQUE: 2 views of the chest were obtained. FINDINGS: Lungs are well-inflated and clear. Trachea is midline in position. No interstitial disease, consolidation or mass. No pleural effusion or pneumothorax. Cardiac silhouette and pulmonary vessels are normal in size. The mediastinum and deandra have normal contour. Mild spondylosis of the thoracic spine. XR/XR chest 2V IMPRESSION: Lungs have a normal appearance. No acute cardiopulmonary abnormality.
== END 2024-01-15 09:14 | disposition home or self-care (01) ==
LOC: HO.HMGCX 09:13
PROVIDERS: PCP Nurse Practitioner Family; Visit Provider Nurse Practitioner Family
DX: R06.2 Wheezing (principal)
CPT/HCPCS: 71046

== ENCOUNTER 2024-06-29 15:43 | Outpatient (AMB) | payer BC, SELFPAY ==
[2024-06-29 15:47] VITALS: BP 130/80; PULSE 77; O2SAT 97; BMI 29.4
--- NOTE | 2024-06-29 15:47 | HO.NEPHOV ---
Vital Signs 06/29/24 15:47 Height 5 ft Weight 150 lb 8 oz BMI 29.4 BP 130/80 Blood Pressure Location Lt radial Position Sitting Pulse 77 Pulse Source Pulse Oximeter Pulse Oximetry (%) 97 Oxygen Delivery Method Room Air Intake Visit Reasons: Renal agenesis, unilateral- Conf Stained Glass Glazier Helper Required: No Accompanied by: Self / Same As Patient Allergies No Known Allergies Allergy (Verified 06/29/24 15:50) HPI Comments Details: I had the privilege of seeing Katherine in consultation for congenital solitary kidney. She was found to have marginally elevated liver function and underwent abdominal ultrasound which showed only single kidney. She has hypertension and has been on carvedilol as well as lisinopril. She is unsure why she has been carvedilol. She never had any coronary artery disease, congestive heart failure, CVA, PVD or MAGEN. She has been a prediabetic but not on any medications. She has not had any recent hemoglobin A1c for the last 6 months but it was 6.5 when it was checked. She does not get recurrent UTI. She does not have any flank pain, pedal edema, hematuria. Her blood pressure has been at goal. She denies any excessive nonsteroidal anti-inflammatory medication intake. She denies sinusitis, orthostatic symptoms, epistaxis, photosensitivity. She has no history of any drug use, hepatitis or HIV. She is known to have microalbuminuria. She did not have any specific complaints at the time this office visit but feels well. [facility] Medical History (Updated 11/10/23 @ 11:49 by Dmitry Ann, [facility]) Fatty liver Menopausal vaginal dryness Leaking of urine Frequency of urination High cholesterol Diabetes Surgical History Hx of section Family History Sister Diabetes 1.5, managed as type 1 Mother Hypertension Social History Housing: House Alcohol intake: current Alcohol intake frequency: a few times a week Patient Tobacco Use Status: Never used Tobacco e-Cigarette/Vaping Use: Never Used Current occupational status: unemployed Sexual orientation: Straight/Heterosexual Gender identity: Female Cognitive needs: No Hearing needs: No Vision needs: No Review of Systems Const All systems reviewed & are unremarkable except as noted in HPI and below Physical Exam Vital Signs: Last Vital Signs Pulse 77 06/29/24 15:47 BP 130/80 06/29/24 15:47 Pulse Ox 97 06/29/24 15:47 Oxygen Delivery Method Room Air 06/29/24 15:47 BMI result Body Mass Index 29.4 Const General: comfortable and no acute distress Orientation/consciousness: patient oriented x3 HEENT Head: Yes normocephalic Mouth: Normal oral and palatal mucosa present Eyes EOM: EOMs intact bilaterally Neck Neck: Yes supple Resp Auscultation: clear to auscultation bilaterally Cardio Jugular venous distension: no JVD Rate: regular rate Heart sounds: Murmur heart sound present GI Palpation (GI): Soft to palpation Auscultation: normal bowel sounds General: Yes no CVA tenderness Back/Spine/Pelvis Back: no CVA tenderness Skin General skin exam: no rashes or lesions noted Neuro General: patient oriented x3 and moves all extremities Extrem General: Yes no pedal edema Results Reviewed Nephrology Results: Hgb 13.9 g/dl (12.0-16.0) 08/23/23 WBC 4.5 X10*3/uL (4.8-10.8) L 08/23/23 Plt Count 243 X10*3/uL (160-400) 08/23/23 Sodium 140 mmol/L (135-145) 08/23/23 Potassium 5.0 mmol/L (3.3-5.1) 08/23/23 Chloride 107 mmol/L (96-108) 08/23/23 Carbon Dioxide 25 mmol/L (22-29) 08/23/23 BUN 17 mg/dL (9-16) H 08/23/23 Creatinine 0.84 mg/dL (0.5-1.4) 08/23/23 Calcium 9.4 mg/dL (8.4-10.2) 08/23/23 Urine Protein Negative mg/dL (Neg-Trace) 08/23/23 Urine Creatinine 47.18 mg/dL 08/23/23 Assessment & Plan Assessment & Plan (1) Congenital absence of one kidney: Code(s): Q60.0 - Renal agenesis, unilateral Category: Medical Plan Katherine has consult solitary kidney which was detected by an abdominal ultrasound which was done for elevated liver enzymes. She has microalbuminuria and has hypertension. Her mother was on hemodialysis from diabetic nephropathy. She has been on carvedilol and lisinopril. I suggested to discontinue carvedilol given there is no indication for initiating the same. At the same time we could increase her lisinopril to 10 mg b.i.d. given she is a high-risk candidate for hyper filtration injury. She has avoided nonsteroidal anti-inflammatories and maintain good hydration. She will benefit from some weight loss and continued lifestyle modification. She has a splenic artery aneurysm for which she should see a vascular physician. He is going to discuss with her primary care physician about discontinuing carvedilol and increasing dose of lisinopril. I did not make any specific medication changes today. I answered all her questions. Follow-up appointment given. Orders: Orders Creatinine Today Q60.0 - Renal agenesis, unilateral Blood Urea Nitrogen Today Q60.0 - Renal agenesis, unilateral Electrolytes Today Q60.0 - Renal agenesis, unilateral Protein Creatinine Ratio, Ur Today Q60.0 - Renal agenesis, unilateral Coding Level of Care Code New Pt Level 4 (60163) Diagnoses Congenital absence of one kidney Q60.0
== END 2024-06-29 16:24 | disposition home or self-care (01) ==
PROVIDERS: PCP Nurse Practitioner Family; Visit Provider Internal Medicine Nephrology
DX: Q60.0 Renal agenesis, unilateral (principal)
CPT/HCPCS: 99204

== ENCOUNTER → 2024-06-29 15:43 | Outpatient (BNVA) | payer BC, SELFPAY | PROVIDERS: PCP Nurse Practitioner Family; Visit Provider Internal Medicine Nephrology ==

== ENCOUNTER 2024-08-26 16:05 | Outpatient (AMB) | payer BC, SELFPAY ==
[2024-08-26 16:11] VITALS: BP 138/80; PULSE 80; O2SAT 98; BMI 29.3
--- NOTE | 2024-08-26 16:11 | A.OFFPC_ITS ---
Vital Signs 08/26/24 16:11 Height 5 ft Weight 150 lb BMI 29.3 BP 138/80 Blood Pressure Location Rt brachial Position Sitting Pulse 80 Pulse Source Pulse Oximeter Pulse Oximetry (%) 98 Intake Visit Reasons: Annual PE Intake Note: pt is here for annual exam Plaster Tender Required: No Accompanied by: Self / Same As Patient Allergies No Known Allergies Allergy (Verified 08/26/24 16:25) Medication List - Last Reconciled 08/26/24 by BHASKAR Benites atorvastatin 10 mg PO BEDTIME blood sugar diagnostic (Boulder ImagingTouch Ultra Test strips) Use to check blood sugar twice daily: fasting and random, and for s/s hypo/hyperglycemia blood-glucose meter ([employer] Ultra2 Meter) Use to check blood sugar twice daily: fasting and random, and for s/s hypo/hyperglycemia flash glucose sensor (FreeStyle Jesusita 2 Sensor kit) Test blood sugar twice a day flash glucose sensor (FreeStyle Jesusita 2 Sensor kit) As directed lancets (Boulder ImagingTouch Delica Lancets) Use to check blood sugar twice daily: fasting and random, and for s/s hypo/hyperglycemia lisinopril 10 mg PO DAILY Tobacco use date assessed: 08/26/24 Dental Screening Dental Screen Date: 08/26/24 Did you have a dental visit in the last 12 months?: Yes Did you have a dental problem in the last 6 months where you did not have access to dental care?: No Was dental information given to patient?: Patient has dentist HPI Annual PE HPI Details History of Present Illness The patient is a 59-year-old female presenting for an annual physical examination. She reports ongoing foot pain that has persisted for a long time, characterized by more soreness and not burning. She denies any numbness or tingling. The discomfort worsens with activity. The patient mentions that she sees a area manager, Dr. Hidalgo, for this issue and is scheduled to see them on the . Pt does see a precision layout worker on a regular basis. Diabetes. She expresses an interest in monitoring her blood sugar levels and plans to have her A1C checked with the next set of labs, preferring to wait until the start of the new year. Additionally, the patient experiences cold sores on her lips periodically. These sores are described as blisters that initially itch before appearing and are painful. The patient has been applying topical medication, which she feels helps manage the condition. Health Maintenance - Mammogram up to date; next due in Jamie burdick. - Colon cancer screening referral to be resubmitted. - Pap smear appointment to be reschedule d. - Recent eye examination performed, pt r eported. - Flu and pneumonia vaccines were offere d but declined by the patient. Social History - Works full-time, which contributes to stress and difficulty managing medical appointments. - Reports new work shoes remain uncomfor table despite recent efforts to find suitable footwear. SHe will be following up with podiatry in the near future Review of Systems - Musculoskeletal: Reports foot pain wit h soreness and burning. - Integumentary: Reports periodic cold s ores on lips. denies any CP, SOB, N/V, polyuria, polydipsia, constipation, diarrhea, SI or HI Physical Exam General: Cooperative, healthy appearing, comfortable, no acute distress and well developed Orientation: Patient oriented x3 Limitations: No limitations Head: Normal to inspection Ears: Hearing grossly normal bilaterally Nose: Normal external nose present Face and sinus: Normal facial exam. left upper lip, healing faintly erythematous ? herpetic lesion Eyes: Appearance normal, both eyes and all related structures Neck: Normal visual inspection and Yes full ROM Respiratory: Normal respiratory effort and able to speak in complete sentences. Clear to auscultation bilaterally Cardiovascular: Regular rate and rhythm. Normal S1 and S2 GI: Normal to inspection. Soft to palpation and nontender Skin: No rashes or lesions noted, but patient reports occasional blisters on lips, likely cold sores Neuro: Patient oriented x3 Extremities: Normal to inspection, + sensation with use of monofilament, no numbness or tingling noted Results Plan - Borderline Diabetes Mellitus: Plan to conduct blood work for A1C in September or October to monitor glucose levels. - Foot Pain: The patient will follow up with her area manager. Consideration to evaluate for orthopedic inserts. - Cold Sores: Blood testing for herpes a t the next lab visit. Continue with topical management as the patient has been doing. Patient was informed and verbally consented to the use of an ambient scribe for clinic note documentation during this visit. Discussion Notes During this visit, I discussed with the patient her borderline diabetes mellitus, recommending that we perform an A1C test at the beginning of the year. I advised her to monitor her symptoms and maintain a healthy lifestyle to manage her blood sugar levels. For her foot pain, I discussed the importance of following up with the area manager to explore options for pain relief, including the use of orthotic inserts. The patient was counseled on the management of cold sores, and I recommended testing for herpes with her next blood draw to confirm the diagnosis. Patient Instructions - Reschedule Pap smear. - Monitor blood sugar levels and maintai n a healthy lifestyle for diabetes manag ement. - Follow up with the area manager emmanuel pearson foot pain. - Continue using topical management for cold sores as needed. - Plan to have labs drawn in September to evaluate glucose control. - Return in six months for follow-up. [facility] Medical History Fatty liver Menopausal vaginal dryness Leaking of urine Frequency of urination High cholesterol Diabetes Surgical History Hx of section Family History Sister Diabetes 1.5, managed as type 1 Mother Hypertension Social History Housing: House Alcohol intake: current Alcohol intake frequency: a few times a week Patient Tobacco Use Status: Never used Tobacco e-Cigarette/Vaping Use: Never Used Current occupational status: unemployed Sexual orientation: Straight/Heterosexual Gender identity: Female Cognitive needs: No Hearing needs: No Vision needs: No Questionnaire PHQ-9 Over the last 2 weeks, how often have you been bothered by any of the following problems? 1. Little interest or pleasure in doing things: not at all 2. Feeling down, depressed, or hopeless: not at all 3. Trouble falling or staying asleep, or sleeping too much: several days 4. Feeling tired or having little energy: several days 5. Poor appetite or overeating: not at all 6. Feeling bad about yourself - or that you are a failure or have let yourself or your family down: not at all 7. Trouble concentrating on things, such as reading the newspaper or watching television: not at all 8. Moving or speaking so slowly that other people could have noticed. Or the opposite - being so fidgety or restless that you have been moving around a lot more than usual: not at all 9. Thoughts that you would be better off or of hurting yourself in some way: not at all Total score: 2 Depression Screening Interpretation: Negative Depression Screening Done: Yes 10787 - PHQ-9 Billing: Yes Source: Developed by Drs. Anil Carlson, Sylvia Batres, Maximiliano Aden and colleagues, with an educational ar from [employer]. Thrive Questionnaire Date Thrive assessed: 08/26/24 I am a: Patient What is your living situation today?: I have a steady place to live Within the past 12 months, did the food you bought not last and you didn't have the money to get more?: Never true Within the past 12 months, did you worry whether your food would run out before you got money to buy more?: Never true Do you have trouble paying for medicines?: No Do you have trouble getting transportation to medical appointments?: No Do you have trouble paying your heating and electricity bill?: I choose not to answer this question Do you have trouble taking care of your child, family member or friend?: No Do you have trouble with day-to-day activities such as bathing, preparing meals, shopping, managing finances, etc.?: No Are you currently unemployed and looking for a job?: No Are you interested in more education?: No Please select the resources that you would like help with: None Currently or been in a relationship where the following occur: I choose not to answer THRIVE Score: 0 AUDIT C Alcohol Use Questionnaire (AUDIT-C) 1. How often do you have a drink containing alcohol?: 2-3 times a week 2. How many drinks containing alcohol do you have on a typical day when you are drinking?: 1 or 2 3. How often do you have six or more drinks on one occasion?: Never Total Score: 3 Score Reviewed/Action Taken: Yes JENNIFER-7 AMB Questionnaire JENNIFER-7 Date JENNIFER - 7 assessed: 08/26/24 Feeling nervous, anxious, or on edge: 0 = Not at all Not being able to stop or control worryin = Not at all Worrying too much about different things: 0 = Not at all Trouble relaxin = Not at all Being so restless that it is hard to sit still: 0 = Not at all Becoming easily annoyed or irritable: 0 = Not at all Feeling afraid as if something awful might happen: 0 = Not at all Total JENNIFER-7 score (0-4 normal; 5-9 mild; 10-14 moderate; 15-21 severe): 0 Source: Developed by Drs. Anil Carlson, Sylvia Batres, Maximiliano Aden and colleagues, with an educational ar from [employer]. JENNIFER-7 Assessment Billing JENNIFER-7 Assessment Tool: JENNIFER-7 Assessment 60112 Physical exam (Primary Care) Vital Signs: Last Vital Signs Pulse 80 08/26/24 16:11 BP 138/80 08/26/24 16:11 Pulse Ox 98 08/26/24 16:11 BMI result Body Mass Index 29.3 Tobacco/Smoking Status: Tobacco use Status Tobacco use date assessed 08/26/24 08/26/24 16:15 Patient Tobacco Use Status Never used Tobacco 08/26/24 16:15 e-Cigarette/Vaping Use Never Used 08/26/24 16:15 PHQ-9: PHQ-9 Score PHQ-9: Total score 2 08/26/24 16:15 Depression Screening Interpretation: Negative Thrive Assessment: Date of Thrive Assessment Date Thrive assessed 08/26/24 08/26/24 16:15 Currently or been in a relationship where the following occur: I choose not to answer Coding Level of Care Code Est Pt Prev Care 40-64y(25416) Diagnoses Physical exam Z00.00 Diabetes E11.9 Cold sore B00.1 Additional Codes JENNIFER-7 Assessment Billing - JENNIFER-7 Assessment Tool: JENNIFER-7 Assessment 04735 ([id number]) PHQ-9 - 81957 - PHQ-9 Billing: Yes ([id number]) Assessment & Plan Assessment & Plan (1) Physical exam: Code(s): Z00.00 - Encounter for general adult medical examination without abnormal findings Category: Medical (2) Diabetes: Code(s): E11.9 - Type 2 diabetes mellitus without complications Category: Medical (3) Cold sore: Code(s): B00.1 - Herpesviral vesicular dermatitis Category: Medical Plan . Orders: Orders Complete Blood Count Auto Diff Today E11.9 - Type 2 diabetes mellitus without complications, Z00.00 - Encounter for general adult medical examination without abnormal findings Comprehensive [place]. Panel Fast Today E11.9 - Type 2 diabetes mellitus without complications, Z00.00 - Encounter for general adult medical examination without abnormal findings UA CC w/rflx Micro + Cult Today E11.9 - Type 2 diabetes mellitus without complications, Z00.00 - Encounter for general adult medical examination without abnormal findings Lipid Panel Today E11.9 - Type 2 diabetes mellitus without complications, Z00.00 - Encounter for general adult medical examination without abnormal findings Herpes Simplex Virus Ab IgG Today B00.1 - Herpesviral vesicular dermatitis TSH reflex Free T4 Today E11.9 - Type 2 diabetes mellitus without complications, Z00.00 - Encounter for general adult medical examination without abnormal findings Hemoglobin A1c Today E11.9 - Type 2 diabetes mellitus without complications, Z00.00 - Encounter for general adult medical examination without abnormal findings Microalbumin, Random (w Creat) Today E11.9 - Type 2 diabetes mellitus without complications, Z00.00 - Encounter for general adult medical examination without abnormal findings
== END 2024-08-26 16:37 | disposition home or self-care (01) ==
PROVIDERS: PCP Nurse Practitioner Family; Visit Provider Nurse Practitioner Family
DX: Z00.00 Encounter for general adult medical examination without abnormal findings (principal); E11.9 Type 2 diabetes mellitus without complications; B00.1 Herpesviral vesicular dermatitis

== ENCOUNTER → 2024-08-26 16:05 | Outpatient (BNVA) | payer BC, SELFPAY | PROVIDERS: PCP Nurse Practitioner Family; Visit Provider Nurse Practitioner Family | DX: Z00.00 Encounter for general adult medical examination without abnormal findings (principal); E11.9 Type 2 diabetes mellitus without complications; B00.1 Herpesviral vesicular dermatitis | CPT/HCPCS: 96127 ==

== ENCOUNTER → 2024-11-29 07:45 | Outpatient (BNV) | payer OTHER, SELFPAY | PROVIDERS: PCP Nurse Practitioner Family; Visit Provider Internal Medicine | DX: Z12.31 Encounter for screening mammogram for malignant neoplasm of breast (principal) | CPT/HCPCS: 77063; 77067 ==

== ENCOUNTER 2024-11-29 07:51 | Outpatient (REF) | payer OTHER, SELFPAY ==
--- OUTSIDE RECORDS SUMMARY | 2024-11-29 07:53 | XMS_ITS | Patient Health Record ---
Author Organization [facility] Address [address] [facility] [place] [address] Care Team Providers Care Group Program Manager Name Role Phone Dmitry Alegre Primary Care Provider James DaileyCarolina hendrixine Unavailable [phone] Black, Meghan Unavailable [phone] Allergies No Known Allergies Reason For Referral No Information Medications Medication SIG (Take, Route, Frequency, Duration) Notes Start Date End Date Status Medrol doris 4mg as directed orally a s directed for 6 days 09/02/2024 Active Night Splint AFO - L1930 as directed 12/25/2015 Not-Taking Physical Therapy . . . 2-3x/week for 3- 4 weeks Not-Taking Physical Therapy . . . 2-3x/week for 3- 4 weeks 08/21/2015 Not-Taking Lisinopril 10 MG Orally Act kalyn Voltaren 1 % Apply 4 grams to mukul nful area on foot as directed Externally Four times a day for 30 days 09/02/2024 Active Social History Tobacco use other than smoking: Question Answer Notes Are you an other tobacco user? No Problems Problem Type SNOMED Code ICD Code Onset Dates Problem Status W/U Status Risk Notes Problem Osteoarthritis of midtarsal joint of left foot (1756327221043418 ) Osteoarthritis of midtarsal joint of left foot (M19.072) Active confirmed Problem Osteoarthritis of midtarsal joint of right foot (9524424303179666 ) Osteoarthritis of midtarsal joint of right foot (M19.071) Active confirmed Problem 71068997 Essential hypertension (I10) Active confirmed Vital Signs Blood pressure diastolic 80 mm Hg 09/02/2024 Height 5ft in 09/02/2024 Blood pressure systolic 138 mm Hg 09/02/2024 Weight 150 lbs 09/02/2024 BMI 29.29 kg/m2 09/02/2024 Encounters Encounter Location Date Provider Diagnosis [address] [address] 09/02/2024 Katharine Ovalle Pain in left foot M79.672 ; Pain in left ankle and joints of left foot M25.572 ; Bursitis of left foot M77.52 ; Osteoarthritis of midtarsal joint of left foot M19.072 ; Pain in right foot M79.671 ; Pain in right ankle and joints of right foot M25.571 ; Bursitis of right foot M77.51 and Osteoarthritis of midtarsal joint of right foot M19.[address] [address] 08/11/2024 Katharine Ovalle [address] [address] 09/02/[address] [address] 10/13/2024 Katharine Ovalle Assessments Encounter Date Diagnosis (ICD Code) Assessment Notes Treatment Notes Treatment Clinical Notes Section Notes 09/02/2024 Pain in left foot (ICD-10 - M79.672) 09/02/2024 Pain in left ankle and joints of left foot (ICD-10 - M25.572) 09/02/2024 Bursitis of left foot (ICD-10 - M77.52) 09/02/2024 Osteoarthritis of midtarsal joint of left foot (ICD-10 - M19.072) 09/02/2024 Pain in right foot (ICD-10 - M79.671) 09/02/2024 Pain in right ankle and joints of right foot (ICD-10 - M25.571) 09/02/2024 Bursitis of right foot (ICD-10 - M77.51) 09/02/2024 Osteoarthritis of midtarsal joint of right foot (ICD-10 - M19.071) Plan Of Treatment Pending Test Test Name Order Date X ray : Foot, left 3V 09/02/2024 X ray : Foot, right 3V 09/02/2024 Next Appt Details Provider Name:Katharine joseph, 01/25/2025 03:45:00 PM, [address] [facility], [facility], [place], [address], Insurance Providers Payer Name Payer Address Payer Phone Subscriber Number Group Number Insured Name Patient Relationship to Insured Coverage Start Date Coverage End Date [facility] [address] [place] [address] [id number] Joel Irving Spouse - patient is the spouse of the insured Medical (General) History Medical History History ICD Code Hypertension Joint implants/screws Back,Hip,and Knee pain CAD (Cholesterol) Diabetic High Blood Pressure Liver disease 1 Kidney Surgical History Surgery Date(Month/Year) oral surgery
--- OUTSIDE RECORDS SUMMARY | 2024-11-29 07:53 | XMS_ITS ---
Author Organization [facility] Address [address] [place] [address] Care Team Providers Care Senior Java J2Ee Developer Name Role Phone Dmitry Alegre Primary Care Provider Unav ailable Katharine Ovalle Unavailable [phone] Meghan Hidalgo Unavailable [phone] REASON FOR VISIT r/s for sooner apt Encounters Encounter Location Date Provider Diagnosis [facility] [address] [place] [address] 10/21/2024 Meghan Hidalgo Plan Of Treatment Next Appt Details Provider Name:Katharine joseph, 01/25/2025 03:45:00 PM, [address] [facility], [address] [place] [address], [address], Progress Notes * Katherine WILSON LDOB:1964 (59 yo F)Acc No.[id number]:10/21/2024 Progress Notes Patient:?Katherine WILSON Provider:?Meghan Hidalgo DPM :1965???Age:59 Y???Sex:Female D ate:10/21/2024 Address:[address] [place] [address] [place] Pcp:TRAMAINE Griffin Subjective: * Chief Complaints: * ???1. R/s for sooner apt. * Medical History:? Objective: * Vitals:? Assessment: Plan: * Treatment: * Images: * The named appointment provid er may or may not be the originator of this progress note, and it is not deemed complete until electronically signed by the appointment provider. Sign off status: Pending * Provider:Leeann Hidalgo DPM Date:?2024 Generated for Adelia patel/Gaudencio/Shelly on:?11/29/2024 07:53 AM EDT
--- OUTSIDE RECORDS SUMMARY | 2024-11-29 07:53 | XMS_ITS ---
Author Organization [facility] Address [address] [facility] [place] [address] Care Team Providers Care Pastoral Counselor Name Role Phone Dmitry Alegre Primary Care Provider Unav ailable Katharine Ovalle Unavailable [phone] Encounters Encounter Location Date Provider Diagnosis [address] [address] 10/15/2024 Katharine Ovalle Plan Of Treatment Next Appt Details Provider Name:Katharine joseph, 01/25/2025 03:45:00 PM, [address] [place] [address], [place], [address], Progress Notes * Katherine WILSON LDOB:1964 (59 yo F)Acc No.[id number]:10/15/2024 Progress Notes Patient:?Katherine WLISON Mica Provider:?Katharine Ovalle DPM :1965???Age:59 Y???Sex:Female D ate:10/15/2024 Address:[address] [place] [address] [place] Pcp:TRAMAINE Griffin Subjective: * Chief Complaints: * ??? * Medical History:? Objective: * Vitals:? Assessment: Plan: * Treatment: * Images: * The named appointment provid er may or may not be the originator of this progress note, and it is not deemed complete until electronically signed by the appointment provider. Sign off status: Pending * Provider:?Katharine Ovalle DPM Date:?0 10/15/2024 Generated for Adelia patel/Gaudencio/Shelly on:?11/29/2024 07:53 AM EDT
--- OUTSIDE RECORDS SUMMARY | 2024-11-29 07:54 | XMS_ITS ---
Author Organization [facility] Address [address] [place] [address] Care Team Providers Care Cto Name Role Phone Dmitry Alegre Primary Care Provider Unav ailable Katharine Ovalle Unavailable [phone] REASON FOR VISIT r/s 10/15/24 Encounters Encounter Location Date Provider Diagnosis [facility] [address] [place] [address] 10/13/2024 Katharine Ovalle Plan Of Treatment Next Appt Details Provider Name:Katharine joseph, 01/25/2025 03:45:00 PM, [address] [facility], [address], [address], Progress Notes * Katherine WILSON LDOB:1964 (59 yo F)Acc No.[id number]:10/13/2024 Patient:?Katherine WILSON Mica :1965???Age:59 Y???Sex:Female Address:[address] [facility] [place] [address] * true * Date:? Generated for Adelia patel/Gaudencio/eTransmitting on:?11/29/2024 07:53 AM EDT
== END 2024-11-29 07:52 | disposition home or self-care (01) ==
LOC: HO.MAMMO 07:51
PROVIDERS: PCP Nurse Practitioner Family; Visit Provider Nurse Practitioner Family
DX: Z12.31 Encounter for screening mammogram for malignant neoplasm of breast (principal)
CPT/HCPCS: 77063; 77067

== ENCOUNTER 2025-02-24 08:05 | Outpatient (AMB) | payer OTHER, SELFPAY ==
--- NOTE | 2025-02-24 08:08 | MHC.PC.OV ---
Vital Signs 02/24/25 08:14 Height 5 ft Weight 150 lb BMI 29.3 BP 118/64 Blood Pressure Location Rt radial Position Sitting Pulse 69 Pulse Source Pulse Oximeter Temp 97.5 F Temp Source Oral Pulse Oximetry (%) 97 Oxygen Delivery Method Room Air Intake Visit Reasons: 6m follow up Ballistic Technician Required: No Accompanied by: Self / Same As Patient Allergies No Known Allergies Allergy (Verified 02/24/25 08:58) Medication List - Last Reconciled 02/24/25 by SÁNCHEZ Benites- blood sugar diagnostic (OneTouch Ultra Test strips) Use to check blood sugar twice daily: fasting and random, and for s/s hypo/hyperglycemia blood-glucose meter (ThinkEcoTouch Ultra2 Meter) Use to check blood sugar twice daily: fasting and random, and for s/s hypo/hyperglycemia flash glucose sensor (FreeStyle Jesusita 2 Sensor kit) Test blood sugar twice a day flash glucose sensor (FreeStyle Jesusita 2 Sensor kit) As directed lancets (OneTouch Delica Lancets) Use to check blood sugar twice daily: fasting and random, and for s/s hypo/hyperglycemia lisinopril 10 mg PO DAILY Tobacco use date assessed: 02/24/25 Dental Screening Dental Screen Date: 02/24/25 Did you have a dental visit in the last 12 months?: Yes Did you have a dental problem in the last 6 months where you did not have access to dental care?: No Was dental information given to patient?: Patient has dentist HPI 6m follow up HPI Details Chief Complaint Follow-up on diabetes with concerns about neuropathy and medication management. History of Present Illness The patient is a 60-year-old female presenting for follow-up on diabetes management. She reports diabetic neuropathy but denies any chest pain, shortness of breath, polyuria, or polydipsia. She has not consistently monitored her blood sugar levels. Recently, a podiatry assessment confirmed osteoarthritis. The patient plans to seek a second opinion for her ongoing care management. Lungs have been noted as clear, and monofilament testing showed intact sensation bilaterally. She has declined vaccinations, including pneumonia. Her mammogram is current, but she is pursuing alternative colorectal screening due to incomplete previous attempts. NOTE: 7.4 a1c, pt would rather not start any medication currently, will see her in 4 months Social History - No substantial social history or determinants were discussed. Health Maintenance - Declined vaccinations, including pneumonia vaccine. - Expressed interested in Cologuard for colorectal cancer screening. - Mammogram reported up to date. -reports eye exam is UTD Review of Systems - Cardiovascular: Denies chest pain. - Respiratory: Denies shortness of breath. - Endocrine: Reports diabetic neuropathy; denies polyuria and polydipsia. Physical Exam General: Cooperative, healthy appearing, comfortable, no acute distress and well developed Orientation: Patient oriented x3 Limitations: No limitations Head: Normal to inspection Ears: Hearing grossly normal bilaterally Nose: Normal external nose present Face and sinus: Normal facial exam Eyes: Appearance normal, both eyes and all related structures Neck: Normal visual inspection and Yes full ROM Respiratory: Normal respiratory effort and able to speak in complete sentences. Clear to auscultation bilaterally Cardiovascular: Regular rate and rhythm. Normal S1 and S2 GI: Normal to inspection. Soft to palpation and nontender Skin: No rashes or lesions noted Neuro: Patient oriented x3, some neuropathy noted Extremities: Normal to inspection, positive sensation with monofilament test bilaterally Results Plan For diabetes management, consistent blood sugar monitoring is emphasized to address neuropathy symptoms. I recommend reviewing and possibly adjusting her medication regimen. While she has declined vaccinations for now, I advise revisiting pneumonia vaccine discussions in the future. I will facilitate a Cologuard test for colorectal cancer screening. Continued follow-up with providers for osteoarthritis is advisable. Discussion Notes During our discussion, I explained that effective management of her diabetes involves consistent self-monitoring of blood sugar levels. We reviewed the potential need for medication adjustments to address her neuropathy symptoms. Despite her current decision to decline vaccinations, I highlighted the protective benefits of the pneumonia vaccine. We also discussed her need for an alternative colorectal cancer screening option through Cologuard due to difficulties with scheduling a colonoscopy. I encouraged ongoing follow-up care for her osteoarthritis and diabetes management. Patient Instructions - Monitor blood sugar levels regularly as directed. - Consider the benefits of vaccination, including the pneumonia vaccine, in future discussions. - Proceed with the Cologuard test for colorectal cancer screening. - Follow up with respective healthcare providers for osteoarthritis and diabetes care. - Contact healthcare provider if symptoms worsen or new symptoms arise. [facility] Medical History Fatty liver Menopausal vaginal dryness Leaking of urine Frequency of urination High cholesterol Diabetes Surgical History Hx of section Family History Sister Diabetes 1.5, managed as type 1 Mother Hypertension Social History Housing: House Alcohol intake: current Alcohol intake frequency: a few times a week Patient Tobacco Use Status: Never used Tobacco e-Cigarette/Vaping Use: Never Used Current occupational status: unemployed Sexual orientation: Straight/Heterosexual Gender identity: Female Cognitive needs: No Hearing needs: No Vision needs: No Questionnaire Thrive Questionnaire Date Thrive assessed: 02/24/25 I am a: Patient What is your living situation today?: I have a steady place to live Within the past 12 months, did the food you bought not last and you didn't have the money to get more?: Never true Do you have trouble paying for medicines?: No Do you have trouble getting transportation to medical appointments?: No Do you have trouble paying your heating and electricity bill?: No Do you have trouble taking care of your child, family member or friend?: No Do you have trouble with day-to-day activities such as bathing, preparing meals, shopping, managing finances, etc.?: No Are you currently unemployed and looking for a job?: No Are you interested in more education?: No Please select the resources that you would like help with: None Currently or been in a relationship where the following occur: I choose not to answer THRIVE Score: 0 AUDIT C Alcohol Use Questionnaire (AUDIT-C) 1. How often do you have a drink containing alcohol?: 2-3 times a week 2. How many drinks containing alcohol do you have on a typical day when you are drinking?: 1 or 2 3. How often do you have six or more drinks on one occasion?: Never Total Score: 3 Score Reviewed/Action Taken: Yes JENNIFER-7 AMB Questionnaire JENNIFER-7 Date JENNIFER - 7 assessed: 02/24/25 Feeling nervous, anxious, or on edge: 0 = Not at all Not being able to stop or control worryin = Not at all Worrying too much about different things: 0 = Not at all Trouble relaxin = Not at all Being so restless that it is hard to sit still: 0 = Not at all Becoming easily annoyed or irritable: 0 = Not at all Feeling afraid as if something awful might happen: 0 = Not at all Total JENNIFER-7 score (0-4 normal; 5-9 mild; 10-14 moderate; 15-21 severe): 0 Source: Developed by Drs. Anil Carlson, Sylvia Batres, Maximiliano Aden and colleagues, with an educational ar from [employer]. JENNIFER-7 Assessment Billing JENNIFER-7 Assessment Tool: JENNIFER-7 Assessment 94202 Physical exam (Primary Care) Vital Signs: Last Vital Signs Temp 97.5 F 02/24/25 08:14 Pulse 69 02/24/25 08:14 BP 118/64 02/24/25 08:14 Pulse Ox 97 02/24/25 08:14 Oxygen Delivery Method Room Air 02/24/25 08:14 BMI result Body Mass Index 29.3 Tobacco/Smoking Status: Tobacco use Status Tobacco use date assessed 02/24/25 02/24/25 08:19 Patient Tobacco Use Status Never used Tobacco 02/24/25 08:09 e-Cigarette/Vaping Use Never Used 02/24/25 08:09 Thrive Assessment: Date of Thrive Assessment Date Thrive assessed 02/24/25 02/24/25 08:26 Currently or been in a relationship where the following occur: I choose not to answer Coding Level of Care Code Est Pt Level 3 (52106) Diagnoses Diabetes E11.9 Additional Codes JENNIFER-7 Assessment Billing - JENNIFER-7 Assessment Tool: JENNIFER-7 Assessment 95111 ([id number]) Assessment & Plan Assessment & Plan (1) Diabetes: Code(s): E11.9 - Type 2 diabetes mellitus without complications Category: Medical Plan . Orders: Referrals Cologuard Test Z12.11 - Encounter for screening for malignant neoplasm of colon, Z12.12 - Encounter for screening for malignant neoplasm of rectum
--- OUTSIDE RECORDS SUMMARY | 2025-02-24 08:12 | XMS_ITS ---
Author Organization [facility] Address [address] [place] [address] Care Team Providers Care Acupuncture Physician Name Role Phone Dmitry Alegre Primary Care Provider Unav ailable Katharine Ovalle Unavailable [phone] Black, Meghan Unavailable [phone] REASON FOR VISIT r/s for sooner apt Encounters Encounter Location Date Provider Diagnosis [facility] [address] [place] [address] 10/21/2024 Meghan Hidalgo Plan Of Treatment No Information Progress Notes * Katherine WILSON LDOB:1964 (60 yo F)Acc No.[id number]:10/21/2024 Progress Notes Patient:?Katherine WILSON Provider:?Meghan Hidalgo DPM :1965???Age:59 Y???Sex:Female D ate:10/21/2024 Address:[address] [place], [place] [address] Pcp:TRAMAINE Griffin Subjective: * Chief Complaints: * ???1. R/s for sooner apt. * Medical History:? Objective: * Vitals:? Assessment: Plan: * Treatment: * Images: * The named appointment provid er may or may not be the originator of this progress note, and it is not deemed complete until electronically signed by the appointment provider. Sign off status: Pending * Provider:?Meghan Hidalgo DPM Date:?2024 Generated for Adelia patel/Gaudencio/Shelly on:?02/24/2025 08:12 AM EDT
[2025-02-24 08:14] VITALS: BP 118/64; PULSE 69; TEMP 36.4; O2SAT 97; BMI 29.3
== END 2025-02-24 08:45 | disposition home or self-care (01) ==
LOC: HO.HMCC 08:06
PROVIDERS: PCP Nurse Practitioner Family; Visit Provider Nurse Practitioner Family
DX: E11.9 Type 2 diabetes mellitus without complications (principal); Z13.9 Encounter for screening, unspecified

== ENCOUNTER → 2025-02-24 08:05 | Outpatient (BNVA) | payer OTHER, SELFPAY | PROVIDERS: PCP Nurse Practitioner Family; Visit Provider Nurse Practitioner Family | DX: E11.40 Type 2 diabetes mellitus with diabetic neuropathy, unspecified (principal) | CPT/HCPCS: 83036; 96127 ==

== ENCOUNTER 2025-04-16 08:37 | Outpatient (REF) | payer OTHER, SELFPAY ==
[2025-04-16 11:43] LABS: MANUAL DIFF FLAG NO
[2025-04-16 11:59] LABS: Hemoglobin A1C 214.7269 umol/L; Total Hemoglobin (HGBA1C) 3883.9275 umol/L
[2025-04-16 12:06] LABS: Hematocrit 44.7 % (37.0-47.0); Hemoglobin 14.6 g/dl (12.0-16.0); Imm Gran Abs Auto 0.02 X10*3/uL (0.00-0.03); Imm Gran Pct Auto 0.5 % (0.0-0.4); Lymphocytes Absolute Auto 1.4 X10*3/uL (1.2-4.9); Mean Corpuscular HGB Conc 32.7 g/dl (31.0-35.0); Mean Corpuscular Hemoglobin 28.6 pg (27.0-33.0); Mean Corpuscular Volume 87.5 fL (80.0-98.0); NRBC Abs Auto 0.000 X10*3/uL (0.0-0.012); NRBC Pct Auto 0.0 /100WBC (0.0-0.2); Platelet Count 249 X10*3/uL (160-400); Red Blood Count 5.11 X10*6/uL (4.20-5.50); White Blood Count 4.4 X10*3/uL (4.8-10.8)
[2025-04-16 12:09] LABS: Appearance Urine Clear; Glucose Urine UA Negative (Negative); PH 6.5 (5.0-9.0); Specific Gravity - Urine 1.010 (1.005-1.025)
[2025-04-16 12:25] LABS: Alanine Aminotransferase 69 U/L (0-31); Albumin Level 4.7 g/dL (3.5-5.0); Alkaline Phosphatase 86 U/L (39-117); Anion Gap 13 (12-20); Aspartate Amino Transferase 37 U/L (5-31); Blood Urea Nitrogen 19 mg/dL (9-16); Calcium 9.4 mg/dL (8.4-10.2); Carbon Dioxide 23 mmol/L (22-29); Chloride 108 mmol/L (96-108); Cholesterol 194 mg/dL (<200); Estimated Glomerular Filt Rate > 60; HDL Cholesterol 52 mg/dL (>40); Potassium 4.8 mmol/L (3.3-5.1); Sodium 139 mmol/L (135-145); Total Protein 7.2 g/dL (6.5-8.0); Triglycerides 126 mg/dL (<150)
[2025-04-16 12:28] LABS: Microalbum/Creatinine Ratio Ur 90.6 ug/mg cr (<30)
== END 2025-04-16 08:38 | disposition home or self-care (01) ==
LOC: HO.HMGCLDS 08:37
PROVIDERS: PCP Nurse Practitioner Family; Visit Provider Nurse Practitioner Family
DX: Z00.00 Encounter for general adult medical examination without abnormal findings (principal); E11.9 Type 2 diabetes mellitus without complications; B00.1 Herpesviral vesicular dermatitis; Z78.0 Asymptomatic menopausal state
CPT/HCPCS: 36415; 80053; 80061; 81003; 82043; 82306; 82570; 83036; 84443; 85025; 86695; 86696

== ENCOUNTER 2025-07-11 08:01 | Outpatient (REF) | payer OTHER, SELFPAY ==
--- NOTE | ~2025-07-11 | XR_ITS ---
EXAMINATION: XR FOOT 3 OR MORE VIEWS LEFT HISTORY: M79.672 - Pain in left foot COMPARISON: There are no prior studies available for comparison. FINDINGS: Three views of the left foot are submitted. Osseous mineralization is normal. There is no fracture or dislocation. There is mild to moderate hallux valgus deformity of the great toe. There is mild soft tissue swelling over the 1st MTP joint. There is a calcaneal spur at the insertion of the Achilles tendon. XR/XR foot LT min 3V IMPRESSION: Mild to moderate hallux valgus deformity of the great toe with associated soft tissue swelling. Electronically signed by: Anil Byrd MD 07/11/2025 09:05 AM EDT
[2025-07-11 10:11] LABS: Appearance Urine Clear; Glucose Urine UA 100 mg/dL (Negative); PH 5.5 (5.0-9.0); Specific Gravity - Urine 1.020 (1.005-1.025); UMIC TRIGGER UACC YES
[2025-07-11 10:25] LABS: MANUAL DIFF FLAG NO
[2025-07-11 10:43] LABS: Hematocrit 42.6 % (37.0-47.0); Hemoglobin 13.8 g/dl (12.0-16.0); Imm Gran Abs Auto 0.01 X10*3/uL (0.00-0.03); Imm Gran Pct Auto 0.2 % (0.0-0.4); Lymphocytes Absolute Auto 1.3 X10*3/uL (1.2-4.9); Mean Corpuscular HGB Conc 32.4 g/dl (31.0-35.0); Mean Corpuscular Hemoglobin 28.3 pg (27.0-33.0); Mean Corpuscular Volume 87.3 fL (80.0-98.0); NRBC Abs Auto 0.020 X10*3/uL (0.0-0.012); NRBC Pct Auto 0.5 /100WBC (0.0-0.2); Platelet Count 246 X10*3/uL (160-400); Red Blood Count 4.88 X10*6/uL (4.20-5.50); White Blood Count 4.4 X10*3/uL (4.8-10.8)
[2025-07-11 10:56] LABS: Alanine Aminotransferase 50 U/L (0-31); Albumin Level 4.3 g/dL (3.5-5.0); Alkaline Phosphatase 91 U/L (39-117); Anion Gap 12 (12-20); Aspartate Amino Transferase 28 U/L (5-31); Blood Urea Nitrogen 19 mg/dL (9-16); Calcium 9.0 mg/dL (8.4-10.2); Carbon Dioxide 25 mmol/L (22-29); Chloride 107 mmol/L (96-108); Cholesterol 191 mg/dL (<200); Estimated Glomerular Filt Rate > 60; HDL Cholesterol 47 mg/dL (>40); Potassium 4.0 mmol/L (3.3-5.1); Sodium 140 mmol/L (135-145); Total Protein 6.7 g/dL (6.5-8.0); Triglycerides 158 mg/dL (<150)
[2025-07-11 17:13] LABS: Uric Acid 7.5 mg/dL (2.4-5.7)
== END 2025-07-11 08:02 | disposition home or self-care (01) ==
LOC: HO.HMGCX 08:01
PROVIDERS: PCP Nurse Practitioner Family; Visit Provider Nurse Practitioner Family
DX: Z00.00 Encounter for general adult medical examination without abnormal findings (principal); M79.675 Pain in left toe(s); M79.672 Pain in left foot; M79.89 Other specified soft tissue disorders; Z13.6 Encounter for screening for cardiovascular disorders; Z13.29 Encounter for screening for other suspected endocrine disorder
CPT/HCPCS: 36415; 73630; 80053; 80061; 81001; 84443; 84550; 85025

== ENCOUNTER 2025-07-11 08:01 | Outpatient (AMB) | payer OTHER, SELFPAY ==
--- OUTSIDE RECORDS SUMMARY | 2024-10-15 09:00 | XMS_ITS ---
Author Organization [facility] Address [address] [place] [address] Care Team Providers Care R Developer Name Role Phone Dmitry Alegre Primary Care Provider Unav ailable Katharine Ovalle Unavailable [phone] Encounters Encounter Location Date Provider Diagnosis [address] [address] 10/15/2024 Katharine Ovalle Plan Of Treatment No Information Progress Notes * Katherine WILSON LDOB:1964 (60 yo F)Acc No.[id number]:10/15/2024 Progress Notes Patient: Katherine CAN Provider: John Ovalle DPM :1965 A ge:59 Y S ex:Female Date:10/15/2024 Address:[address] [place] [phone] Pcp:TRAMAINE Griffin Subjective: * Chief Complaints: * * Medical History: Objective: * Vitals: Assessment: Plan: * Treatment: * Images: * The named appointment provid er may or may not be the originator of this progress note, and it is not deemed complete until electronically signed by the appointment provider. Sign off status: Pending * Provider: John Ovalle DPM Date: 0 10/15/2024 Generated for Yulianai ng/Faalexandrg/eTransmitting on: 08:08 AM EDT
--- OUTSIDE RECORDS SUMMARY | 2024-10-21 04:30 | XMS_ITS ---
Author Organization [facility] Address [address] [place] [address] Care Team Providers Care Clinical Assistant Professor Name Role Phone Dmitry Alegre Primary Care Provider Unav ailKatharine Bush Unavailable [phone] Black, Meghan Unavailable [phone] REASON FOR VISIT r/s for sooner apt Encounters Encounter Location Date Provider Diagnosis [facility] [address] [place] [address] 10/21/2024 Meghan Hidalgo Plan Of Treatment No Information Progress Notes * Katherine WILSON LDOB:1964 (60 yo F)Acc No.[id number]:10/21/2024 Progress Notes Patient: Katherine CAN Provider: Cony Hidalgo DPM :1965 A ge:59 Y S ex:Female Date:10/21/2024 Address:[address] [place] [address] Pcp:TRAMAINE Griffin Subjective: * Chief Complaints: * [...] 10/21/2024 Generated for Adelia patel/Gaudencio/Shelly on: 1 08:07 AM EDT
--- OUTSIDE RECORDS SUMMARY | 2025-01-25 11:45 | XMS_ITS ---
Author Organization [facility] Address [address] [facility] [place] [address] Care Team Providers Care Warehouse Worker 2Nd Shift Name Role Phone Dmitry Alegre Primary Care Provider Unav ailable Katharine Ovalle Unavailable [phone] Encounters Encounter Location Date Provider Diagnosis [address] [address] 01/25/2025 Katharine Ovalle Plan Of Treatment No Information Progress Notes * Katherine WILSON LDOB:1964 (60 yo F)Acc No.[id number]:01/25/2025 Progress Notes Patient: Katherine CAN Provider: John Ovalle DPM :1965 A ge:59 Y S ex:Female Date:01/25/2025 Address:[address] [place] [address] Pcp:TRAMAINE Griffin Subjective: * Chief Complaints: * * Medical History: Objective: * Vitals: Assessment: Plan: * Treatment: * Images: * The named appointment provid er may or may not be the originator of this progress note, and it is not deemed complete until electronically signed by the appointment provider. Sign off status: Pending * Provider: John Ovalle DPM Date: 0 01/25/2025 Generated for Yulianai ng/Faalexandrg/eTransmitting on: 08:08 AM EDT
[2025-07-11 08:05] VITALS: BP 122/80; PULSE 76; TEMP 36.8; O2SAT 96; BMI 28.7
--- NOTE | 2025-07-11 08:05 | AM.OFFWIN_ITS ---
Intake Vital Signs 07/11/25 08:05 Height 5 ft Weight 147 lb BMI 28.7 BP 122/80 Blood Pressure Location Rt brachial Position Sitting Pulse 76 Pulse Source Pulse Oximeter Temp 98.3 F Temp Source Oral Pulse Oximetry (%) 96 Intake Visit Reasons: EP Gout? LT toe Intake Note: pt is here for possible gout, left foot. Patient Tobacco Use Status: Never used Tobacco Allergies No Known Allergies Allergy (Verified 07/11/25 08:07) Medication List - Last Reconciled 07/11/25 by Carissa Lal NP blood sugar diagnostic (Baila GamesTouch Ultra Test strips) Use to check blood sugar twice daily: fasting and random, and for s/s hypo/hyperglycemia blood-glucose meter (Earmarkuch Ultra2 Meter) Use to check blood sugar twice daily: fasting and random, and for s/s hypo/hyperglycemia flash glucose sensor (FreeStyle Jesusita 2 Sensor kit) Test blood sugar twice a day flash glucose sensor (FreeStyle Jesusita 2 Sensor kit) As directed lancets (Baila GamesTouch Delica Lancets) Use to check blood sugar twice daily: fasting and random, and for s/s hypo/hyperglycemia lisinopril 10 mg PO DAILY prednisone 20 mg PO DAILY Do you need a note to return to daycare/school/sports/work: Yes HPI HPI Comments History of Present Illness Details 60 y/o Female patient who presents to [facility] walk [facility] clinic with c/o Left Foot Pain associated with Left Great Toe swelling since Friday. Denies Injury or trauma to the Foot. Denies Fevers, chills, Nausea or vomiting. She has been taking Ibuprofen and Acetaminophen with minimal relief. Pt questioning ?Gout because her Brother has Gout. [facility] Medical History (Updated 07/11/25 @ 08:31 by Carissa Lal NP) Pain and swelling of toe of left foot Foot pain, left Fatty liver Menopausal vaginal dryness Leaking of urine Frequency of urination High cholesterol Diabetes Surgical History Hx of section Family History Sister Diabetes 1.5, managed as type 1 Mother Hypertension Social History Housing: House Alcohol intake: current Alcohol intake frequency: a few times a week Patient Tobacco Use Status: Never used Tobacco e-Cigarette/Vaping Use: Never Used Current occupational status: unemployed Sexual orientation: Straight/Heterosexual Gender identity: Female Cognitive needs: No Hearing needs: No Vision needs: No Review of Systems Const All systems reviewed & are unremarkable except as noted in HPI and below Physical Exam Vital Signs: Last Vital Signs Temp 98.3 F 07/11/25 08:05 Pulse 76 07/11/25 08:05 BP 122/80 07/11/25 08:05 Pulse Ox 96 07/11/25 08:05 BMI result Body Mass Index 28.7 Const General: no acute distress; No comfortable Nutritional Appearance: overweight Orientation/consciousness: patient oriented x3 Neuro General: patient oriented x3, gait normal (Walks with a slight limp) and moves all extremities Extrem Left lower extremity: foot Details: normal capillary refill, tenderness Location: of the great toe (Metatarsophalangeal joint - metatarsals. ), toes with normal ROM, warmth and other (Significant swelling at the Metatarsophalangeal joint, redness and TTP.); no crepitus and no puncture wound Psych Speech and movement: Normal speech and movement present Assessment & Plan Assessment & Plan (1) Pain and swelling of toe of left foot: Code(s): M79.675 - Pain in left toe(s); M79.89 - Other specified soft tissue disorders Plan: DDx's: Gout vs Osteomylitis vs Arthritis vs Fracture. Ordered Xray Foot to r/o Fx, OA Ordered Lab work to r/o Gout Rest joint, Ice/Heat Ordered small dose of Prednisone, Acetaminophen and Diclofenac for pain relief and swelling. Orders: Orders Uric Acid Today M79.675 - Pain in left toe(s), M79.89 - Other specified soft tissue disorders Medications: New acetaminophen 1,000 mg (2 x 500 mg) PO Q6H PRN 20 caps 0RF pain M79.675 - Pain in left toe(s), M79.89 - Other specified soft tissue disorders diclofenac potassium 50 mg PO BID 14 tabs 0RF 7 days M79.675 - Pain in left toe(s), M79.89 - Other specified soft tissue disorders prednisone 20 mg PO DAILY 5 tabs 0RF M79.675 - Pain in left toe(s), M79.89 - Other specified soft tissue disorders Coding Level of Care Code Est Pt Level 4 (48303) Diagnoses Pain and swelling of toe of left foot M79.675; M79.89 Time Spent (min) 20
--- OUTSIDE RECORDS SUMMARY | 2025-07-11 08:08 | XMS_ITS | Clinical Summary ---
Author Organization [facility] Address [address] [id number] Phone Care Team Providers Care Radio Engineering Teacher Name Role Phone Pcp, Unknown Primary Care Provider Unavailabl e Social History Tobacco Use Types Packs/Day Years Used Date Smoking Tobacco: Never Assessed Education Answer Date Recorded Are you interested in more education? Not on orlin e 01/18/2023 Are you concerned about learning? Not on file 01/18/2023 No 01/18/2023 No 01/18/2023 Digital Access Answer Date Recorded No 2023 No 2023 No 2023 Reliable internet access at home? Not on file 2023 Device with a working camera? Not on file Comments Unknown Sex and Gender Information Value Date Recorded Sex Assigned at Not on file Legal Sex Female 12:34 PM EST Gender Identity Not on file Sexual Orientation Not on file Plan of Treatment Health Maintenance Due Date Last Done Comments Adult Td,Tdap Booster 1966 LIPID PANEL 1966 DEPRESSION SCREENING 1978 SMOKING Hx and SMOKELESS TOB ACCO SCREENING 1979 HEPATITIS C SCREENING 02/17/1984 HIV ONE-TIME SCREENING (18-6 5 YEARS) 02/17/1984 PAP SMEAR 1987 MAMMOGRAM 2006 COLOGUARD 2011 COLONOSCOPY 2011 COLORECTAL CANCER SCREENING 2011 FIT TEST 2011 FOBT 2011 SIGMOIDOSCOPY 2011 VIRTUAL COLONOSCOPY 2011 PNEUMOCOCCAL VACCINES (50+ y ears) (1 of 1 - PCV) 02/17/2016 ZOSTER VACCINES (1 of 2) 02/17/2016 INFLUENZA VACCINE (#1) 2025 COVID-19 VACCINE (2 - 2024-2 6 season) 2025 02/21/2021 RSV VACCINE (1 - 1-dose 75+ series) 2041 HEPATITIS A VACCINES Aged Out No long er eligible based on patient's age to complete this topic HIB VACCINES Aged Out No longer eligi ble based on patient's age to complete this topic MENINGOCOCCAL VACCINES (ACWY) Aged Out No longer eligible based on patient's age to complete this topic MENINGOCOCCAL VACCINES (B) Aged Out N o longer eligible based on patient's age to complete this topic Medical Devices Not on file Care Teams Radio Engineering Teacher Relationship Specialty Start Date End Date Pcp, Unknown PCP - General 09/25/22 Additional Source Comments The information contained in this document represents components of the legal health record. It is not the complete legal health record.[facility]
--- OUTSIDE RECORDS SUMMARY | 2025-07-11 08:09 | XMS_ITS | Patient Health Record ---
Author Organization [facility] Address [address] [place] [address] Care Team Providers Care Accounts Adjustable Clerk Name Role Phone Tevin (RETIRED) , [place] Primary Care Provide r Unavailable Anil Sotelo Unavailable [phone] Dawit ALVARADO, Zoila Unavailable Unavailable Reason For Referral No Information Medications Medication SIG (Take, Route, Fr equency, Duration) Notes Start Date End Date Status Lisinopril 10 MG Orally Act kalyn Vitamin D Active Problems Problem Type SNOMED Code ICD Code Onset Dates Problem Status W/U Status Risk Notes Problem Screening for malignant neoplasm of colon (194597727) Encounter for screening for malignant neoplasm of colon (Z12.11) Active confirmed Problem Screening for malignant neoplasm of rectum (406957986) Encounter for screening for malignant neoplasm of rectum (Z12.12) Active confirmed Problem Preprocedural examination (921219926953773) Preprocedural examination (Z01.818) Active confirmed Plan Of Treatment Future Test Test Name Order Date COLONOSCOPY 06/05/2016 Insurance Providers Payer Name Payer Address Payer Phone Subscriber Number Group Number Insured Name Patient Relationship to Insured Coverage Start Date Coverage End Date O [employer] PROF[employer]AL CLAIMS [address] [place] [address] [phone] [id number] [address] WILSON Self - patient is the insured Medical (General) History Medical History History ICD Code Hypertension Denies DC,DM,CVA,Lung disease,renal dise ase Surgical History Surgery Date(Month/Year) Mouth surgery/bone grafting twice in 6 y ears
--- OUTSIDE RECORDS SUMMARY | 2025-07-11 08:09 | XMS_ITS | Patient Health Record ---
Author Organization [facility] [place] Address [address] [facility] [place] [address] Care Team Providers Care Group Work Program Director Name Role Phone Dmitry Alegre Primary Care Provider James laws Katharine Ovalle Unavailable [phone] Black, Meghan Unavailable [phone] Allergies No Known Allergies Reason For Referral No Information Medications Medication SIG (Take, Route, Frequency, Duration) Notes Start Date End Date Status Medrol doris 4mg as directed orally a s directed; Duration: 6 days 09/02/2024 Active Night Splint AFO - L1930 as directed 12/25/2015 Not-Taking Physical Therapy . . . 2-3x/week; Durat ion: 3-4 weeks Not-Taking Physical Therapy . . . 2-3x/week; Durat ion: 3-4 weeks 08/21/2015 Not-Taking Lisinopril 10 MG Orally Act kalyn Voltaren 1 % Apply 4 grams to mukul nful area on foot as directed Externally Four times a day; Duration: 30 days 09/02/2024 Active Social History Tobacco use other than smoking: Question Answer Notes Are you an other tobacco user? No Problems Problem Type SNOMED Code ICD Code Onset Dates Problem Status W/U Status Risk Notes Problem Osteoarthritis of midtarsal joint of left foot (0367805065963663 ) Osteoarthritis of midtarsal joint of left foot (M19.072) Active confirmed Problem Osteoarthritis of midtarsal joint of right foot (3626770062948219 ) Osteoarthritis of midtarsal joint of right foot (M19.071) Active confirmed Problem Essential hypertension (77117652) Essential hypertension (I10) Active confirmed Vital Signs Blood pressure diastolic 80 mm Hg 09/02/2024 Height 5ft in 09/02/2024 Blood pressure systolic 138 mm Hg 09/02/2024 Weight 150 lbs 09/02/2024 BMI 29.29 kg/m2 09/02/2024 Encounters Encounter Location Date Provider Diagnosis [address] [address] 09/02/2024 Katharine Ovalle Pain in left foot [...] midtarsal joint of right foot M19.[address] [address] 08/11/2024 Katharine Ovalle [address] [address] 09/02/2024 Katharine Ovalle [address] [address] 10/13/2024 Katharine Ovalle [address] [address] 01/24/2025 Katharine Ovalle Assessments Encounter Date Diagnosis (ICD [...] X ray : Foot, right 3V 09/02/2024 Insurance Providers Payer Name Payer Address Payer Phone Subscriber Number Group Number Insured Name Patient Relationship to Insured Coverage Start Date Coverage End Date [facility] All Others [address] [place] [address] [id number] Joel Irving Spouse - patient is the spouse of the insured Medical (General) History Medical History History ICD Code Hypertension Joint implants/screws Back,Hip,and Knee pain CAD (Cholesterol) Diabetic High Blood Pressure Liver disease 1 Kidney Surgical History Surgery Date(Month/Year) oral surgery
== END 2025-07-11 08:34 | disposition home or self-care (01) ==
PROVIDERS: PCP Nurse Practitioner Family; Visit Provider Nurse Practitioner Family
DX: M79.675 Pain in left toe(s) (principal); M79.89 Other specified soft tissue disorders

== ENCOUNTER → 2025-07-11 08:42 | Outpatient (BNV) | payer OTHER, SELFPAY | PROVIDERS: PCP Nurse Practitioner Family; Visit Provider Radiology Diagnostic Radiology | DX: M79.672 Pain in left foot (principal) | CPT/HCPCS: 73630 ==

== ENCOUNTER 2025-07-28 07:32 | Outpatient (REF) | payer OTHER, SELFPAY ==
--- OUTSIDE RECORDS SUMMARY | 2024-10-15 08:00 | XMS_ITS ---
Author Organization [facility] Address [address] [facility] [address] Care Team Providers Care Speech/Language Therapist Name Role Phone Dmitry Alegre Primary Care Provider Unav ailable Katharine Ovalle Unavailable [phone] Encounters Encounter Location Date Provider Diagnosis [address] [address] 10/15/2024 Katharine Ovalle Plan Of Treatment No Information Progress Notes * Katherine WILSON LDOB:1964 (60 yo F)Acc No.[id number]:10/15/2024 Progress Notes Patient: Katherine CAN Provider: John Ovalle DPM :1965 A ge:59 Y S ex:Female Date:10/15/2024 Address:[address] [place] [phone] Pcp:TRAMAINE Griffin Subjective: * Chief Complaints: * [...] 0 10/15/2024 Generated for Adelia ng/Faluke/eTransmitting on: 09/27/2024 07:35 AM EST
--- OUTSIDE RECORDS SUMMARY | 2024-10-21 03:30 | XMS_ITS ---
Author Organization [facility] Address [address] [place] [address] Care Team Providers Care Washing Machine Striper Name Role Phone Dmitry Alegre Primary Care Provider Unav ailKatharine Bush Unavailable [phone] Black, Meghan Unavailable [phone] REASON FOR VISIT r/s for sooner apt Encounters Encounter Location Date Provider Diagnosis [facility] [address] [place] [address] 10/21/2024 Meghan Hidalgo Plan Of Treatment No Information Progress Notes * Katherine WILSON LDOB:1964 (60 yo F)Acc No.[id number]:10/21/2024 Progress Notes Patient: Katherine CAN Provider: Cony Hidalgo DPM :1965 A ge:59 Y S ex:Female Date:10/21/2024 Address:[address] [place] [phone] Pcp:TRAMAINE Griffin Subjective: * Chief Complaints: * 1 . R/s for sooner apt. * Medical History: Objective: * Vitals: Assessment: Plan: * Treatment: * Images: * The named appointment provid er may or may not be the originator of this progress note, and it is not deemed complete until electronically signed by the appointment provider. Sign off status: Pending * Provider: Cony Hidalgo DPM Date: 0 10/21/2024 Generated for Adelia patel/Gaudencio/Shelly on: 1 09/27/2024 07:35 AM EST
--- OUTSIDE RECORDS SUMMARY | 2025-01-25 10:45 | XMS_ITS ---
Author Organization [facility] Address [address] [facility] [place] [address] Care Team Providers Care Cow Tender Name Role Phone Dmitry Alegre Primary Care Provider Unav ailable Katharine Ovalle Unavailable [phone] Encounters Encounter Location Date Provider Diagnosis [address] [address] 01/25/2025 Katharine Ovalle Plan Of Treatment No Information Progress Notes * Katherine WILSON LDOB:1964 (60 yo F)Acc No.[id number]:01/25/2025 Progress Notes Patient: Katherine CAN Provider: John Ovalle DPM :1965 A ge:59 Y S ex:Female Date:01/25/2025 Address:[address] [place] [address] Pcp:TRAMAINE Griffin Subjective: * Chief Complaints: * * Medical History: Objective: * Vitals: Assessment: Plan: * Treatment: * Images: * The named appointment provid er may or may not be the originator of this progress note, and it is not deemed complete until electronically signed by the appointment provider. Sign off status: Pending * Provider: John Ovalle DPM Date: 0 01/25/2025 Generated for Adelia ng/Gaudencio/eTransmitting on: 1 09/27/2024 07:35 AM EST
--- OUTSIDE RECORDS SUMMARY | 2025-07-28 07:36 | XMS_ITS | Patient Health Record ---
Author Organization [facility] Address [address] [place] [address] Care Team Providers Care Special Needs Librarian Name Role Phone Tevin (RETIRED) , [place] Primary Care Provide r Unavailable Anil Sotelo Unavailable [phone] Dawit ALVARADO, Zoila Unavailable Unavailable Reason For Referral No Information Medications Medication SIG (Take, Route, Fr equency, Duration) Notes Start Date End Date Status Lisinopril 10 MG Orally Act kalyn Vitamin D Active Problems Problem Type SNOMED Code ICD Code Onset Dates Problem Status W/U Status Risk Notes Problem Screening for malignant neoplasm of colon (374666764) Encounter for screening for malignant neoplasm of colon (Z12.11) Active confirmed Problem Screening for malignant neoplasm of rectum (914076903) Encounter for screening for malignant neoplasm of rectum (Z12.12) Active confirmed Problem Preprocedural examination (998192946691794) Preprocedural examination (Z01.818) Active confirmed Plan Of Treatment Future Test Test Name Order Date COLONOSCOPY 06/05/2016 Insurance Providers Payer Name Payer Address Payer Phone Subscriber Number Group Number Insured Name Patient Relationship to Insured Coverage Start Date Coverage End Date O [employer] 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
--- OUTSIDE RECORDS SUMMARY | 2025-07-28 07:36 | XMS_ITS | Patient Health Record ---
Author Organization [facility] [place] Address [address] [facility] [place] [address] Care Team Providers Care Director Product Name Role Phone Dmitry Alegre Primary Care Provider James laws Katharine Ovalle Unavailable [phone] Black, Meghan Unavailable [phone] Allergies No Known Allergies Reason For Referral [...] Osteoarthritis of midtarsal joint of left foot (2809950737001519 ) Osteoarthritis of midtarsal joint of left foot (M19.072) Active confirmed Problem Osteoarthritis of midtarsal joint of right foot (9410798710521185 ) Osteoarthritis of midtarsal joint of right foot (M19.071) Active confirmed Problem Essential hypertension (47153466) Essential hypertension (I10) Active confirmed Vital Signs Blood pressure diastolic 80 mm Hg 09/02/2024 Height 5ft in 09/02/2024 Blood pressure systolic 138 mm Hg 09/02/2024 Weight 150 lbs 09/02/2024 BMI 29.29 kg/m2 09/02/2024 Encounters Encounter Location Date Provider Diagnosis [address] [address] 09/02/2024 Katharine Ovalle Pain in left foot [...] of midtarsal joint of right foot M19.[address] [address] 08/11/2024 Katharine Ovalle [address] [address] 09/02/2024 Katharine Ovalle [address] [address] 10/13/2024 Katharine Ovalle [address] [address] 01/24/2025 Katharine Ovalle Assessments Encounter Date Diagnosis [...] Insured Coverage Start Date Coverage End Date [facility] All Others [address] [place] [address] [id number] Joel Irving Spouse - patient is the spouse of the insured Medical (General) History Medical History History ICD Code Hypertension Joint implants/screws Back,Hip,and Knee pain CAD (Cholesterol) Diabetic High Blood Pressure Liver disease 1 Kidney Surgical History Surgery Date(Month/Year) oral surgery
--- OUTSIDE RECORDS SUMMARY | 2025-07-28 07:36 | XMS_ITS | Clinical Summary ---
Author Organization [facility] Address [address] [id number] Phone Care Team Providers Care Retread Supervisor Name Role Phone Pcp, Unknown Primary Care [...] Medical Devices Not on file Care Teams Retread Supervisor Relationship Specialty Start Date End Date Pcp, Unknown PCP - General 09/25/22 Additional Source Comments The information contained in this document represents components of the legal health record. It is not the complete legal health record.[facility]
[2025-07-28 10:57] LABS: Appearance Urine Clear; Glucose Urine UA Negative (Negative); PH 7.5 (5.0-9.0); Specific Gravity - Urine 1.015 (1.005-1.025)
== END 2025-07-28 07:33 | disposition home or self-care (01) ==
LOC: HO.HMGCLDS 07:32
PROVIDERS: PCP Nurse Practitioner Family; Visit Provider Nurse Practitioner Family
DX: R80.9 Proteinuria, unspecified (principal)
CPT/HCPCS: 81003

== ENCOUNTER 2025-08-06 10:23 | Outpatient (AMB) | payer OTHER, SELFPAY ==
[2025-08-06 10:28] VITALS: BP 118/74; PULSE 86; RESP 15; TEMP 36.7; O2SAT 98; BMI 28.3
--- NOTE | 2025-08-06 10:28 | MHC.OFFWIV ---
Intake Vital Signs 08/06/25 10:28 Height 5 ft Weight 145 lb BMI 28.3 BP 118/74 Blood Pressure Location Lt brachial Position Sitting Respiration 15 Pulse 86 Pulse Source Pulse Oximeter Temp 98.1 F Temp Source Oral Pulse Oximetry (%) 98 Oxygen Delivery Method Room Air Intake Visit Reasons: EP Possible gout Intake Note: Pt is here today c/o Lt grt toe pain and swollen Patient Tobacco Use Status: Never used Tobacco Circus Hand Required: No Allergies No Known Allergies Allergy (Verified 08/06/25 10:29) Medication List - Last Reconciled 08/06/25 by SÁNCHEZ Sosa- acetaminophen 1,000 mg (2 x 500 mg) PO Q6H PRN blood sugar diagnostic (TimePointsTouch Ultra Test strips) Use to check blood sugar twice daily: fasting and random, and for s/s hypo/hyperglycemia blood-glucose meter (TimePointsTouch Ultra2 Meter) Use to check blood sugar twice daily: fasting and random, and for s/s hypo/hyperglycemia flash glucose sensor (FreeStyle Jesusita 2 Sensor kit) Test blood sugar twice a day flash glucose sensor (FreeStyle Jesusita 2 Sensor kit) As directed lancets (OneTouch Delica Lancets) Use to check blood sugar twice daily: fasting and random, and for s/s hypo/hyperglycemia lisinopril 10 mg PO DAILY HPI HPI Comments History of Present Illness Details Chief Complaint The patient is a 60-year-old female presenting with persistent pain in her left great toe for the past three weeks. History The patient is a 60-year-old female presenting with persistent left great toe pain. Gout: - The patient reports the onset of painful and swollen left great toe three weeks ago, noting it was initially very warm. - This is her first episode of gout, though she has a family history with both of her brothers having the condition. - She was prescribed medications by another provider and completed a course of prednisone, took colchicine QD for two weeks, and used acetaminophen 500 mg, but did not take the prescribed diclofenac. - Symptoms are much better but have not fully resolved. - An x-ray on July 11 showed soft tissue swelling. - For 4-5 days, she experienced significant pain, causing her to limp and be unable to wear her shoes. Hallux valgus: - The patient has a known bunion and an x-ray confirmed a mild to moderate hallux valgus deformity. - She wears steel-toed work shoes, which are uncomfortable and hard in the front. - She experiences unpredictable, severe pain in the toe joint when walking. - She last saw a lithographic press feeder about a year ago, who suggested surgery, which she has not pursued. - The patient is currently undergoing [employer] treatments for her feet. Arthritis and plantar fasciitis: - The patient was told by a foot doctor a couple of years ago that she has a lot of arthritis in her feet based on x-rays. - She also reports a past issue that sounded like plantar fasciitis. - Past interventions included a brace and rolling a golf ball under her foot, which did not resolve the problem. Past Medical History - Past Medical History: Hallux valgus, arthritis of the foot, history of plantar fasciitis. - Family History: Positive for gout in two brothers. Review of Systems - Musculoskeletal: Reports left great toe pain and swelling for three weeks, which has improved but not resolved. Reports intermittent, unpredictable, sharp pain in the joint with ambulation. Reports general foot pain. - Constitutional: Reports history of warmth in the affected toe. - Gastrointestinal: Denies diarrhea with prior colchicine use. Results - Imaging: - X-ray of the left foot (07/11): Showed mild to moderate hallux valgus deformity of the great toe with soft tissue swelling. Medical Decision Making The patient is a 60-year-old female presenting for a follow-up on her left great toe pain, which started three weeks ago. Her presentation is consistent with a first episode of acute gout, which is supported by a family history of the condition in both of her brothers and an x-ray showing soft tissue swelling. While her symptoms have improved with prednisone and colchicine, they have not fully resolved. Examination today reveals residual swelling and erythema without heat, and only mild tenderness. Given the incomplete resolution, the plan is to try a loading dose of colchicine (araseli 0.6 mg tablets, then 1 more one hour later) to flush out the remaining uric acid, with the patient counseled on the expected side effect of diarrhea. The patient's underlying hallux valgus and need to wear steel-toed shoes likely contribute to her chronic foot pain and may have precipitated this gout flare. Preventative daily medication such as allopurinol was discussed as a future option but will not be started at this time for a first-time episode; she was advised to discuss this with her PCP. Dietary modification with a low-purine diet was recommended, and she was advised to follow-up with podiatry for management of her hallux valgus. Plan 1. Gout, Unspecified - The patient is experiencing her first episode of acute gout, which is improving but not fully resolved. - Prescribed a loading dose of colchicine: take 2 tablets, then 1 tablet one hour later, as a one-time dose to help flush out the uric acid. - Counseled that diarrhea is an expected side effect of this treatment. - Advised to use diclofenac for pain as needed, noting it will not treat the gout itself. - Recommended dietary modifications, including a low-purine diet avoiding foods like shellfish and red meat, and increasing fluid intake. - Advised to discuss long-term preventative medication, such as allopurinol, with her PCP, Dmitry, at her upcoming appointment in August. - Follow-up is not needed for this issue unless symptoms worsen, becoming red, hot, and severely painful again. 2. Hallux Valgus (Acquired), Left Foot - The patient has a chronic hallux valgus deformity contributing to foot pain, which is exacerbated by her work shoes. - Recommended to follow up with a lithographic press feeder to discuss management options, such as orthotics or surgical correction. Patient Instructions - For your toe pain, take your colchicine medication in a specific way today only: Take 2 pills, and then one hour later, take 1 more pill. Do not take any more after that. - You should expect to get diarrhea from this medication. This is normal and means it is working to flush out your system. - You can use the other medication, diclofenac, if you have pain, but it will not help cure the problem. - Try to avoid foods that can make gout worse, such as shellfish, hot dogs, and red meat. Drink plenty of fluids. - Schedule an appointment with a foot doctor (lithographic press feeder) to talk about your bunion and other foot pain. You can ask them about special shoe inserts (orthotics). - When you see your primary doctor, Dmitry, in August, let him know about this episode of gout. - You do not need to come back for this problem unless your toe becomes very red, hot, and painful again. Consent Patient was informed and verbally consented to the use of an ambient scribe for clinic note documentation during this visit. Total time spent caring for the patient today was 30 minutes. This includes time spent before the visit reviewing the chart, time spent during the visit, and time spent after the visit on documentation, reviewing laboratory results, diagnostic imaging, medications, performing a medically necessary evaluation, counseling on diagnoses, care coordination, ordering appropriate tests, ordering appropriate medications, review of tests performed by other providers, reporting test results with the patient, communication with other healthcare providers. [facility] Medical History (Updated 08/06/25 @ 11:07 by Vanita Manley [facility]) Diabetes Fatty liver Foot pain, left Frequency of urination Gout High cholesterol Leaking of urine Menopausal vaginal dryness Pain and swelling of toe of left foot Surgical History Hx of section Family History Sister Diabetes 1.5, managed as type 1 Mother Hypertension Social History Housing: House Alcohol intake: current Alcohol intake frequency: a few times a week Patient Tobacco Use Status: Never used Tobacco e-Cigarette/Vaping Use: Never Used Current occupational status: unemployed Sexual orientation: Straight/Heterosexual Gender identity: Female Cognitive needs: No Hearing needs: No Vision needs: No Physical Exam Vital Signs: Last Vital Signs Temp 98.1 F 08/06/25 10:28 Pulse 86 08/06/25 10:28 Resp 15 08/06/25 10:28 BP 118/74 08/06/25 10:28 Pulse Ox 98 08/06/25 10:28 Oxygen Delivery Method Room Air 08/06/25 10:28 BMI result Body Mass Index 28.3 Extrem Left lower extremity: foot Details: normal capillary refill, abnormal to inspection Details: a deformity (very mild erythema without excessive warmth noted over the hallux valgus on L ) Location: of the hallux valgus, toes with normal ROM and motor-sensory exam Details: two point discrimination normal and light-touch normal Results Reviewed Results Reviewed: FINDINGS: Three views of the left foot are submitted. Osseous mineralization is normal. There is no fracture or dislocation. There is mild to moderate hallux valgus deformity of the great toe. There is mild soft tissue swelling over the 1st MTP joint. There is a calcaneal spur at the insertion of the Achilles tendon. XR/XR foot LT min 3V IMPRESSION: Mild to moderate hallux valgus deformity of the great toe with associated soft tissue swelling. Electronically signed by: Anil Byrd MD 07/11/2025 09:05 AM EDT Assessment & Plan Assessment & Plan (1) Gout: Code(s): M10.9 - Gout, unspecified Qualifiers: Gout site: toe Gout etiology: unspecified cause Laterality: left Presence of tophus: without tophus (2) Hallux valgus: Code(s): M20.10 - Hallux valgus (acquired), unspecified foot Qualifiers: Laterality: bilateral Qualified Code(s): M20.11 - Hallux valgus (acquired), right foot; M20.12 - Hallux valgus (acquired), left foot Plan . Medications: New colchicine (Colcrys) take 2 tab po x 1 then 1 tab po 1 hour later x 1 max dose 1/8mg/day 0.6 mg PO DAILY 3 tabs 0RF Patient Instructions: Patient Instructions - For your toe pain, take your colchicine medication in a specific way today only: Take 2 pills, and then one hour later, take 1more pill. Do not take any more after that. - You should expect to get diarrhea from this medication. This is normal and means it is working to flush out your system. - You can use the other medication, diclofenac, if you have pain, but it will not help cure the problem. - Try to avoid foods that can make gout worse, such as shellfish, hot dogs, and red meat. Drink plenty of fluids. - Schedule an appointment with a foot doctor (lithographic press feeder) to talk about your bunion and other foot pain. You can ask them about special shoe inserts (orthotics). - When you see your primary doctor, Dmitry, in August, let him know about this episode of gout. - You do not need to come back for this problem unless your toe becomes very red, hot, and painful again. Coding Level of Care Code Est Pt Level 4 (55231) Diagnoses Gout M10.9 Gout site: toe Gout etiology: unspecified cause Laterality: left Presence of tophus: without tophus Valgus deformity of both great toes M20.11; M20.12 Laterality: bilateral
== END 2025-08-06 11:05 | disposition home or self-care (01) ==
PROVIDERS: PCP Nurse Practitioner Family; Visit Provider Nurse Practitioner Family
DX: M10.9 Gout, unspecified (principal); M20.11 Hallux valgus (acquired), right foot; M20.12 Hallux valgus (acquired), left foot

== ENCOUNTER 2025-08-30 07:55 | Outpatient (AMB) | payer OTHER, SELFPAY ==
--- OUTSIDE RECORDS SUMMARY | 2024-10-15 08:00 | XMS_ITS ---
Author Organization [facility] Address [address] [facility] [place] [address] Care Team Providers Care Gospel Worker Name Role Phone Dmitry Alegre Primary Care Provider Unav ailable Katharine Ovalle Unavailable [phone] Encounters Encounter Location Date Provider Diagnosis [address] [address] 10/15/2024 Katharine Ovalle Plan Of Treatment No Information Progress Notes * Katherine WILSON LDOB:1964 (60 yo F)Acc No.[id number]:10/15/2024 Progress Notes Patient: Katherine CAN Provider: Jhon Ovalle DPM :1965 A ge:59 Y S ex:Female Date:10/15/2024 Address:[address] [place] [id number] Pcp:TRAMAINE Griffin Subjective: * Chief Complaints: * * Medical History: Objective: * Vitals: Assessment: Plan: * Treatment: * Images: * The named appointment provid er may or may not be the originator of this progress note, and it is not deemed complete until electronically signed by the appointment provider. Sign off status: Pending * Provider: John Ovalle DPM Date: 0 10/15/2024 Generated for Adelia ng/Faluke/eTransmitting on: 10/31/2024 08:22 AM EST
--- OUTSIDE RECORDS SUMMARY | 2024-10-21 03:30 | XMS_ITS ---
Author Organization [facility] Address [address] [place] [address] Care Team Providers Care Mat Repairer Name Role Phone Dmitry Alegre Primary Care Provider Unav ailKatharine Bush Unavailable [phone] Black, Meghan Unavailable [phone] REASON FOR VISIT r/s for sooner apt Encounters Encounter Location Date Provider Diagnosis [facility] [address] [place] [address] 10/21/2024 Meghan Hidalgo Plan Of Treatment No Information Progress Notes * Katherine WILSON LDOB:1964 (60 yo F)Acc No.[id number]:10/21/2024 Progress Notes Patient: Katherine CAN Provider: Cony Hidalgo DPM :1965 A ge:59 Y S ex:Female Date:10/21/2024 Address:[address] [place] [phone] Pcp:TRAMAINE Griffin Subjective: * Chief Complaints: * [...] 10/21/2024 Generated for Adelia patel/Gaudencio/Shelly on: 1 10/31/2024 08:20 AM EST
--- OUTSIDE RECORDS SUMMARY | 2025-01-25 10:45 | XMS_ITS ---
Author Organization [facility] Address [address] [place] [address] Care Team Providers Care Rubber Flap Tuber Machine Operator Name Role Phone Dmitry Alegre Primary Care Provider Unav ailable Katharine Ovalle Unavailable [phone] Encounters Encounter Location Date Provider Diagnosis [address] [address] 01/25/2025 Katharine Ovalle Plan Of Treatment No Information Progress Notes * Katherine WILSON LDOB:1964 (60 yo F)Acc No.[id number]:01/25/2025 Progress Notes Patient: Katherine CAN Provider: John Ovalle DPM :1965 A ge:59 Y S ex:Female Date:01/25/2025 Address:[address] [place] [address] Pcp:TRAMAINE Griffin Subjective: * Chief Complaints: * [...] 01/25/2025 Generated for Adelia ng/Gaudencio/eTransmitting on: 1 10/31/2024 08:22 AM EST
[2025-08-30 07:58] VITALS: BP 132/86; PULSE 69; RESP 16; O2SAT 100; BMI 28.5
--- NOTE | 2025-08-30 07:58 | A.OFFPC_ITS ---
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: No Accompanied by: Self / Same As Patient Allergies No Known Allergies Allergy (Verified 08/30/25 08:02) Medication List - Last Reconciled 08/30/25 [facility] blood sugar diagnostic (OneTouch Ultra Test strips) Use to check blood sugar twice daily: fasting and random, and for s/s hypo/hyperglycemia blood-glucose meter (Cytovance BiologicsTouch Ultra2 Meter) Use to check blood sugar twice daily: fasting and random, and for s/s hypo/hyperglycemia dapagliflozin propanediol (Farxiga) 5 mg PO DAILY flash glucose sensor (FreeStyle Jesusita 2 Sensor kit) Test blood sugar twice a day flash glucose sensor (FreeStyle Jesusita 2 Sensor kit) As directed lancets (Cytovance BiologicsTouch Delica Lancets) Use to check blood sugar twice daily: fasting and random, and for s/s hypo/hyperglycemia lisinopril 10 mg PO DAILY Tobacco use date assessed: 08/30/25 Dental Screening Dental Screen Date: 08/30/25 Did you have a dental visit in the last 12 months?: Yes Did you have a dental problem in the last 6 months where you did not have access to dental care?: No Was dental information given to patient?: Patient has dentist HPI PE HPI Details History of Present Illness The patient is a 60-year-old female presenting for a follow-up physical exam and management of diabetes. She has a diagnosis of diabetes and her recent A1c was 7.0. She denies any neuropathy and is due for a repeat eye exam. The patient has a history of gout, with only one serious attack reported. She also has a history of bilateral bunion formation, with the left being larger than the right. She has seen a cargo agent in the past. Hx of splenic aneurysm, will reasses. Health Maintenance - The patient is due for a repeat eye ex am. - The patient declined all vaccinations. 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 Repor ts positive sensation with monofilament testing. denies any fevers, chills, n/v, cp, sob, blood in stool, constipation/diarrhea, si or hi Physical Exam General: Cooperative, healthy appearing, comfortable, no acute distress and well developed, obese Orientation: Patient oriented x3 Limitations: No limitations Head: Normal to inspection Ears: Hearing grossly normal bilaterally Nose: Normal external nose present Face and sinus: Normal facial exam Eyes: Appearance normal, both eyes and all related structures Neck: Normal visual inspection and Yes full ROM, no carotid bruits noted Respiratory: Normal respiratory effort and able to speak in complete sentences. Clear to auscultation bilaterally Cardiovascular: Regular rate and rhythm. Normal S1 and S2 GI: Normal to inspection. Soft to palpation and nontender Skin: No rashes or lesions noted Neuro: Patient oriented x3 Extremities: Normal to inspection, history of gout and bunion formation, left bunion larger than right, ? gout nodule formation in left bunion, positive sensation with use of monofilament, feet intact. no tenderness with palpation of left bunion/gout Results - Lab Results: Hemoglobin A1c is 7.0%. - Lab Results: Uric acid is elevated. Plan 1. Diabetes Mellitus With a recent hemoglobin A1c of 7.0, the patient will start an SGLT-2 inhibitor. The side effects of this medication were discussed. She is due for a repeat eye exam and has been advised accordingly. A follow-up visit is scheduled in 4 to 6 months. 2. Gout And Hyperuricemia The patient has a history of one severe gout attack and currently has an elevated uric acid level. She was advised to report any new attacks in the near future, at which point preventative medication may be considered. 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 I informed her of the potential side effects of the new medication. We also discussed her elevated uric acid and the plan to monitor for future gout attacks before considering preventative therapy. The patient was reminded that she is due for a repeat eye exam. I advised a follow-up appointment in 4 to 6 months, and she verbalized understanding of the plan. She declined all vaccinations at this time. CT scan to reassess aneurysm Patient Instructions - You will begin taking a new medication , an SGLT-2 inhibitor, for your diabe troy. - Be aware of the possible side effects of this new medication, which we discussed. - Please schedule a follow-up appointmen t in the next 4 to 6 months. - It is time for you to have a repeat ey e examination. - Let me know if you experience another gout attack, as we may need to start a preventative medication. [facility] Medical History Gout Pain and swelling of toe of left foot Foot pain, left Fatty liver Menopausal vaginal dryness Leaking of urine Frequency of urination High cholesterol Diabetes Surgical History Hx of section Family History Sister Diabetes 1.5, managed as type 1 Mother Hypertension Social History Housing: House Alcohol intake: current Alcohol intake frequency: a few times a week Patient Tobacco Use Status: Never used Tobacco e-Cigarette/Vaping Use: Never Used Current occupational status: unemployed Sexual orientation: Straight/Heterosexual Gender identity: Female Cognitive needs: No Hearing needs: No Vision needs: No Questionnaire PHQ-9 Over the last 2 weeks, how often have you been bothered by any of the following problems? 1. Little interest or pleasure in doing things: not at all 2. Feeling down, depressed, or hopeless: not at all 3. Trouble falling or staying asleep, or sleeping too much: not at all 4. Feeling tired or having little energy: not at all 5. Poor appetite or overeating: not at all 6. Feeling bad about yourself - or that you are a failure or have let yourself or your family down: not at all 7. Trouble concentrating on things, such as reading the newspaper or watching television: not at all 8. Moving or speaking so slowly that other people could have noticed. Or the opposite - being so fidgety or restless that you have been moving around a lot more than usual: not at all 9. Thoughts that you would be better off or of hurting yourself in some way: not at all Total score: 0 Depression Screening Interpretation: Negative Depression Screening Done: Yes 75762 - PHQ-9 Billing: Yes Source: Developed by Drs. Anil Carlson, Sylvia Batres, Maximiliano Aden and colleagues, with an educational ar from [employer]. Thrive Questionnaire Date Thrive assessed: 02/17/25 I am a: Patient What is your living situation today?: I have a steady place to live Within the past 12 months, did the food you bought not last and you didn't have the money to get more?: Never true Within the past 12 months, did you worry whether your food would run out before you got money to buy more?: Never true Do you have trouble paying for medicines?: No Do you have trouble getting transportation to medical appointments?: No Do you have trouble paying your heating and electricity bill?: No Do you have trouble taking care of your child, family member or friend?: No Do you have trouble with day-to-day activities such as bathing, preparing meals, shopping, managing finances, etc.?: No Are you currently unemployed and looking for a job?: No Are you interested in more education?: No Currently or been in a relationship where the following occur: No concerns reported THRIVE Score: 0 JENNIFER-7 AMB Questionnaire JENNIFER-7 Date JENNIFER - 7 assessed: 08/30/25 Feeling nervous, anxious, or on edge: 0 = Not at all Not being able to stop or control worryin = Not at all Worrying too much about different things: 0 = Not at all Trouble relaxin = Not at all Being so restless that it is hard to sit still: 0 = Not at all Becoming easily annoyed or irritable: 0 = Not at all Feeling afraid as if something awful might happen: 0 = Not at all Total JENNIFER-7 score (0-4 normal; 5-9 mild; 10-14 moderate; 15-21 severe): 0 Source: Developed by Drs. Anil Carlson, Maximiliano Balderas and colleagues, with an educational ar from [employer]. JENNIFER-7 Assessment Billing JENNIFER-7 Assessment Tool: JENNIFER-7 Assessment 47467 Physical exam (Primary Care) Vital Signs: Last Vital Signs Pulse 69 08/30/25 07:58 Resp 16 08/30/25 07:58 BP 132/86 12/09/25 07:58 Pulse Ox 100 08/30/25 07:58 Oxygen Delivery Method Room Air 08/30/25 07:58 BMI result Body Mass Index 28.5 Tobacco/Smoking Status: Tobacco use Status Tobacco use date assessed 08/30/25 08/30/25 08:01 Patient Tobacco Use Status Never used Tobacco 08/30/25 07:58 e-Cigarette/Vaping Use Never Used 08/30/25 07:58 PHQ-9: PHQ-9 Score PHQ-9: Total score 0 08/30/25 08:04 Depression Screening Interpretation: Negative Thrive Assessment: Date of Thrive Assessment Date Thrive assessed 02/17/25 08/30/25 07:58 Currently or been in a relationship where the following occur: No concerns reported Results AMB Hemoglobin A1c AMB Hemoglobin A1c 7.0 % Last Edit by Marimar Baltazar MA on 08/30/25 08:20 Results Reviewed Results Reviewed: Laboratory Last Values Hgb A1c (Clinic) 7.0 % (4.0-6.0) H 08/30/25 08:09 Coding Level of Care Code Est Pt Level 3 (00859) Est Pt Prev Care 40-64y(47120) Diagnoses Splenic artery aneurysm I72.8 Diabetes E11.9 Elevated liver enzymes R74.8 Gout M10.9 Gout site: toe Gout etiology: unspecified cause Laterality: left Presence of tophus: without tophus Encounter for routine adult physical exam with abnormal findings Z00.01 Additional Codes JENNIFER-7 Assessment Billing - JENNIFER-7 Assessment Tool: JENNIFER-7 Assessment [id number] ([id number]) PHQ-9 - 65622 - PHQ-9 Billing: Yes ([id number]) Assessment & Plan Assessment & Plan (1) Splenic artery aneurysm: Code(s): I72.8 - Aneurysm of other specified arteries Category: Medical (2) Diabetes: Code(s): E11.9 - Type 2 diabetes mellitus without complications Category: Medical (3) Elevated liver enzymes: Comment: hx of fatty liver Code(s): R74.8 - Abnormal levels of other serum enzymes Category: Medical (4) Gout: Code(s): M10.9 - Gout, unspecified Category: Medical Qualifiers: Gout site: toe Gout etiology: unspecified cause Laterality: left Presence of tophus: without tophus (5) Encounter for routine adult physical exam with abnormal findings: Code(s): Z00.01 - Encounter for general adult medical examination with abnormal findings Category: Medical Plan . Orders: Orders AMB Hemoglobin A1c Today E11.9 - Type [address] without complications CT angio abdomen pelvis Today I72.8 - Aneurysm of other specified arteries Medications: New dapagliflozin propanediol (Farxiga) 5 mg PO DAILY 30 tabs 2RF
--- OUTSIDE RECORDS SUMMARY | 2025-08-30 08:20 | XMS_ITS | Clinical Summary ---
Author Organization [facility] Address [address] [facility] [address] [place], [place] [id number] Phone Care Team Providers Care Field Sales Associate Name Role Phone Pcp, Unknown Primary Care [...] Medical Devices Not on file Care Teams Field Sales Associate Relationship Specialty Start Date End Date Pcp, Unknown PCP - General 09/25/22 Additional Source Comments The information contained in this document represents components of the legal health record. It is not the complete legal health record.[facility]
--- OUTSIDE RECORDS SUMMARY | 2025-08-30 08:23 | XMS_ITS | Patient Health Record ---
Author Organization [facility] Address [address] [place] [address] Care Team Providers Care Lead Welder Name Role Phone Tevin (RETIRED) [place] KEY Primary Care Provide r Unavailable Anil Sotelo Unavailable [phone] Dawit ALVARADO, Zoila Cavanaugh Unavailable Reason For Referral No Information Medications Medication SIG (Take, Route, Fr equency, Duration) Notes Start Date End Date Status Lisinopril 10 MG Tablet Orally Active Vitamin D Active Social History Social History Additional Details Category Social Info Options Details Miscellaneous: Marital status: 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 alcohol Problems Problem Type SNOMED Code ICD Code Onset Dates Problem Status W/U Status Risk Notes Problem Screening for malignant neoplasm of colon (868240697) Encounter for screening for malignant neoplasm of colon (Z12.11) Active confirmed Problem Screening for malignant neoplasm of rectum (999191390) Encounter for screening for malignant neoplasm of rectum (Z12.12) Active confirmed Problem Preprocedural examination (554125987666948) Preprocedural examination (Z01.818) Active confirmed Plan Of Treatment Future Test Test Name Order Date COLONOSCOPY 06/05/2016 Insurance Providers Payer Name Payer Address Payer Phone Subscriber Number Group Number Insured Name Patient Relationship to Insured Coverage Start Date Coverage End Date [facility] [id number] CLAIMS [address] [place] [address] [phone] [id number] WILSON Self - patient is the insured Medical (General) History Medical History History ICD Code Hypertension Denies MT,DM,CVA,Lung disease,renal dise ase Surgical History Surgery Date(Month/Year) Mouth surgery/bone grafting twice in 7 y ears
== END 2025-08-30 08:45 | disposition home or self-care (01) ==
LOC: HO.HMCC 07:55
PROVIDERS: PCP Nurse Practitioner Family; Visit Provider Nurse Practitioner Family
DX: Z00.01 Encounter for general adult medical examination with abnormal findings (principal); I72.8 Aneurysm of other specified arteries; E11.9 Type 2 diabetes mellitus without complications; R74.8 Abnormal levels of other serum enzymes; M10.9 Gout, unspecified

== ENCOUNTER → 2025-08-30 07:55 | Outpatient (BNVA) | payer OTHER, SELFPAY | PROVIDERS: PCP Nurse Practitioner Family; Visit Provider Nurse Practitioner Family | DX: Z00.01 Encounter for general adult medical examination with abnormal findings (principal); E11.9 Type 2 diabetes mellitus without complications; M10.9 Gout, unspecified; M21.612 Bunion of left foot; M21.611 Bunion of right foot; I72.8 Aneurysm of other specified arteries; R74.8 Abnormal levels of other serum enzymes | CPT/HCPCS: 83036; 96127 ==